=== PATIENT | male | born 1935 | race Caucasian/White ===

== ENCOUNTER 2016-05-15 13:30 | Inpatient (IN) | payer OTHER ==
[~2016-05-15] VITALS: Ht 165.1 cm; Wt 85.8 kg
[~2016-05-15 13:30] MED LIST: IBUP-1542 PO; TRAM50TA2 PO
[2016-05-15] MEDS ORDERED: AZITHROMYCIN 250 MG TAB PO STA (13:42)
[2016-05-15] MEDS ORDERED: SOD CHLORIDE 0.9% 500 ML IV STA (13:42)
[2016-05-15] MEDS ORDERED: CEFTRIAXONE 1 GM/50 ML (PMX) 50 ML IVPB STA (13:42)
--- NOTE | 2016-05-15 13:54 | ERA ---
ER Documentation Chief Complaint Date/Time DATE: 05/15/16 TIME: 13:51 Chief Complaint body aches x 2 weaks HPI Patient is an 80-year-old who comes in reporting fever with cough and congestion for the last 2 weeks. He states he is coughing up greenish phlegm and has a sore throat with a runny nose. He denies any earache, shortness of breath, abdominal pain, nausea, vomiting, or diarrhea. He states he has not been around anyone who has been sick nor has he traveled out of the country. He did go to see his primary care physician and he states that his physician was unable to find anything wrong with him. He says he feels worse now however which is why he is here in the emergency department. He says he is sore all over his body. He is not have any rashes. Nothing seems to make this better or worse. The remainder of the systems are negative. ROS All systems reviewed and are negative except as per history of present illness. Medications Home Meds Discontinued Scripts Ibuprofen* (Motrin*) 600 Mg Tab, 600 MG PO Q6, #20 TAB Prov:SAKSHI SCHWARTZ MD 09/03/14 Tramadol HCl (Tramadol HCl) 50 Mg Tab, 50 MG PO Q4 Y for PAIN, #20 TAB Prov:SAKSHI SCHWARTZ MD 09/03/14 Allergies Allergies: Coded Allergies: No Known Allergies (Verified Allergy, Mild, 09/03/14) PMhx/Soc History of Surgery: Yes (RECENT LA S/P CABG) Anesthesia Reaction: No Hx Neurological Disorder: No Hx Respiratory Disorders: No Hx Cardiac Disorders: Yes Hx Psychiatric Problems: No Hx Miscellaneous Medical Probl: Yes (DM,HTN,ASHD,s/pCABG 12/10) Hx Alcohol Use: Yes (21 YEARS AGO STOPPED) Hx Substance Use: No Hx Tobacco Use: Yes (21 YRS AGO) FmHx Family History: coronary disease, No diabetes Physical Exam Vitals Vital Signs Date Time Temp Pulse Resp B/P Pulse Ox O2 Delivery O2 Flow Rate FiO2 05/15/16 15:07 107 28 129/84 98 Room Air 05/15/16 13:49 Nasal Cannula 2 05/15/16 13:37 101.1 114 18 140/82 99 Physical Exam Const: [] Well-developed well-nourished male sitting on the bed no acute distress Head: Atraumatic normocephalic Eyes: Normal Conjunctiva ENT: Normal External Ears, Nose and Mouth. Posterior pharynx is slightly erythematous Neck: Full range of motion..~ No meningismus. Resp: Decreased in the bases, no tachypnea, retractions, or nasal flaring noted Cardio: Regular rate and rhythm, no murmurs Abd: Soft, non tender, non distended. Normal bowel sounds Skin: No petechiae or rashes Back: No midline or flank tenderness Ext: No cyanosis, or edema Neur: Awake and alert, oriented 3, GCS of 15 Psych: Normal Mood and Affect Result Diagram: 05/15/16 1350 Results 24 hrs Laboratory Tests Test 05/15/16 13:50 Eosinophils # 10^3/ul Eosinophils % % Hematocrit 38.3% Hemoglobin 13.3g/dl Mean Corpuscular Hemoglobin 29.4pg Mean Corpuscular Hemoglobin Concent 34.7g/dl Mean Corpuscular Volume 84.5fl Mean Platelet Volume 10.6fl Neutrophils # 10^3/ul Neutrophils % % Platelet Count 50712^3/UL Red Blood Count 4.5310^6/ul Red Cell Distribution Width 14.2% White Blood Count 14.110^3/ul Current Medications Medications (Trade) Dose Ordered Sig/Simone Route PRN Reason Start Time Stop Time Status Last Admin Dose Admin Sodium Chloride (NS) 500 ml @ 500 mls/hr Q1H STAT IV 05/15/16 13:42 05/15/16 14:41 DC Azithromycin 500 mg 500 mg ONCE STAT PO 05/15/16 13:42 05/15/16 13:47 DC Ceftriaxone Sodium (Rocephin) 50 ml @ 100 mls/hr ONCE STAT IVPB 05/15/16 13:42 05/15/16 14:11 DC Acetaminophen (Tylenol Tab) 650 mg ONCE ONCE PO 05/15/16 14:00 05/15/16 14:01 DC Procedures/MDM Differential includes but is not limited to pneumonia, bronchitis, influenza, viral syndrome, pharyngitis Chest x-ray was interpreted as cardiomegaly with bilateral pleural effusions however clinically he is more consistent with pneumonia 1500: I spoke with the hospitalist about admitting the patient to the hospital for IV antibiotic therapy and further evaluation and treatment. The patient clinically is unchanged. Departure Diagnosis: Primary Impression: Fever Qualified Code: R50.81 - Fever in other diseases Additional Impressions: Pneumonia Qualified Code: J18.9 - Pneumonia of both lower lobes due to infectious organism Myalgia Condition: RICHIE Peralta May 15, 2016 13:54
[2016-05-15] MEDS ORDERED: ACETAMINOPHEN 325 MG TAB PO ONE (14:00)
[2016-05-15 14:16] LABS: ADD SCAN DIFF NO
[2016-05-15 14:17] LABS: HEMATOCRIT 38.3 % (42.0-52.0); HEMOGLOBIN 13.3 g/dl (14.0-18.0); MEAN CORPUSCULAR HEMOGLOBIN 29.4 pg (29.0-33.0); MEAN CORPUSCULAR HGB CONC 34.7 g/dl (32.0-37.0); MEAN CORPUSCULAR VOLUME 84.5 fl (82.0-101.0); MEAN PLATELET VOLUME 10.6 fl (7.4-10.4); PLATELET COUNT 329 10^3/UL (140-415); RED BLOOD COUNT 4.53 10^6/ul (4.70-6.10); RED CELL DISTRIBUTION WIDTH 14.2 % (11.5-14.5); WHITE BLOOD COUNT 14.1 10^3/ul (4.8-10.8)
--- NOTE | 2016-05-15 14:31 | RADRPT ---
PROCEDURE: Chest x-ray CLINICAL INDICATION: Shortness of breath TECHNIQUE: Chest single view COMPARISON: 04/14/2014 FINDINGS: There is moderate cardiomegaly and mild atherosclerotic aortic calcification but there is interval d evelopment of CHF with small bilateral pleural effusions IMPRESSION: Cardiomegaly with interval development of CHF and small bilateral pleural effusions Status post CABG RPTAT: HH .Alli Gonzales MD, MD Date Time Electronically viewed and signed by .Alli Gonzales MD, on 05/15/2016 14:31 .W/
[2016-05-15] MEDS ORDERED: ONDANSETRON 4 MG INJ IV PRN (15:30)
[2016-05-15] MEDS ORDERED: ACETAMINOPHEN 325 MG TAB PO PRN (15:30)
[2016-05-15 15:42] LABS: LYMPHOCYTES # 0.8 10^3/ul (0.8-2.9); MONOCYTE # 1.1 10^3/ul (0.3-0.9); NEUTROPHIL # 12.1 10^3/ul (1.6-7.5); PLATELET ESTIMATE PLT APPEAR ADEQUATE
[2016-05-15 15:55] LABS: POTASSIUM 3.8 mmol/L (3.5-5.1)
[2016-05-15 15:57] LABS: ALBUMIN/GLOBULIN RATIO 0.93; BILIRUBIN,INDIRECT 0.3 mg/dl (0-1.1); BILIRUBIN,TOTAL 0.3 mg/dl (0.2-1.3); CALCIUM 9.8 mg/dl (8.4-10.2); CREATININE 0.67 mg/dl (0.61-1.24); TOTAL PROTEIN 6.2 g/dl (6.1-8.1)
[2016-05-15] MEDS ORDERED: NACL 0.9% 3 ML SYG IV SCH (17:00)
[2016-05-15] MEDS ORDERED: BISACODYL (EC) 5 MG TAB PO PRN (17:00)
[2016-05-15] MEDS ORDERED: ONDANSETRON 4 MG TAB PO PRN (17:00)
[2016-05-15] MEDS ORDERED: DOCUSATE SODIUM 100 MG CAP PO PRN (17:00)
[2016-05-15] MEDS ORDERED: HYDROCODONE/APAP (5/325) TAB PO PRN (17:00)
[2016-05-15 20:00] VITALS: BP 134/69; RESP 17; Ht 165.1 cm; Wt 85.8 kg
[2016-05-15 21:06] VITALS: PULSE 111
[2016-05-15] MEDS: SOD CHLORIDE 0.9% 1,000 ML IV SCH (21:23)
[2016-05-15] MEDS: ASPIRIN 81 MG TAB PO SCH (21:32)
--- NOTE | 2016-05-15 23:06 | RADRPT ---
PROCEDURE: CT Head without. CLINICAL INDICATION: Altered mental status. TECHNIQUE: The study was performed utilizing a multi-slice, multidetector CT scanner. Direct spira l 1 mm axial sections were obtained through the head without the use of intravenous contrast materia l. 1 or more of the following dose reduction techniques were utilized: Automated exposure control, adjustment of the mA and/or kV according to patient's size, iterative reconstruction technique. Co wayne and sagittal reformations were obtained. The images were reviewed on a PACS workstation. RADIATION DOSE: CTDIvol: 45.0 mGyDLP: 720.2 mGy-cm COMPARISON: No prior studies are available for comparison. FINDINGS: There is no intracranial hemorrhage, extra-axial fluid collection, mass lesion, midline shift or hyd rocephalus. There is subtle loss of rousseau-white matter differentiation involving the posterior left parietal / occipital lobe (axial series image 15), concerning for acute infarct. There is moderate prominence of the cerebral sulci, lateral and third ventricles. There is moderate patchy periventri cular and subcortical white matter hypodensity. There is mild arteriosclerotic calcification of the parasellar internal carotid arteries. The rousseau-white matter differentiation is preserved. The bas al cisterns are patent. The midline structures are intact. There is bilateral aphakia. The orbits , calvarium and extracranial soft tissues are normal in appearance. The visualized paranasal sinuses , mastoid air cells and middle ear cavities are normally aerated. IMPRESSION: 1. Subtle loss of rousseau-white matter differentiation involving the left parietal / occipital lobe, c oncerning for acute infarct. MRI is recommended for further evaluation. 2. No intracranial hemorrhage, extra-axial fluid collection, mass lesion or hydrocephalous. 3. Moderate peripheral and central cerebral volume loss. 4. 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 The above findings were discussed with Patient's Nurse Em by telephone on 05/15/2016 11:04:29 PM . RPTAT: HGAS .Jesus Guzman MD, Date Time Electronically viewed and signed by .Jesus Guzman MD, on 05/15/2016 23:06 .S/
[2016-05-15] MEDS ORDERED: ATORVASTATIN 80 MG TAB GTB SCH (23:45)
[2016-05-15] MEDS ORDERED: ASPIRIN 81 MG TAB PO ONE (23:50)
[2016-05-15] MEDS ORDERED: ATORVASTATIN 80 MG TAB PO SCH ×2 (23:51)
[2016-05-16] VITALS (12 sets, daily range): BP systolic 124–161; BP diastolic 52–85; PULSE 94–118; RESP 14–18
[2016-05-16] MEDS ORDERED: hydrALAzine 20 MG INJ IV PRN (03:00)
[2016-05-16] MEDS: PANTOPRAZOLE (EC) 40 MG TAB PO SCH (06:00)
[2016-05-16 06:08] LABS: TROPONIN-I 0.068 ng/ml (0.00-0.12)
[2016-05-16 06:33] LABS: CK-MB 1.95 ng/ml (0.0-2.4)
--- NOTE | 2016-05-16 07:16 | HP ---
DATE OF ADMISSION: 05/15/2016 CONSULTANTS: [employer]. CHIEF COMPLAINT: Fever. HISTORY OF PRESENT ILLNESS: This is an 80-year-old gentleman with past medical history of coronary artery disease, hypertension, diabetes mellitus, coronary artery bypass surgery, myocardial infarct ion, transient hyponatremia, coronary artery bypass graft x3 vessels on 12/19/2009 who was sent to [facility] secondary to having body aches x2 weeks accompanied with cough and conge stion. The patient stated he has been coughing greenish phlegm, has been having runny nose and sore throat. Denies any shortness of breath, chest pain, palpitations, edema, orthopnea. Denies any si ck contact or recent travel history. The physical examination and history is very limited. The pat joni is a very poor historian and is not compliant with his medication, accordingly is not taking an y of his medications that he was prescribed in the past. Upon arrival to emergency room, patient wa s found to have fever of 101.1, pulse 114, respiration 18, blood pressure 140/82, and oxygen 99% in room air. GENERAL APPEARANCE: Patient is lying in the bed comfortably without any distress. He is awake, neville rt, oriented. He is able to answer my questions properly. PAST MEDICAL AND SURGICAL HISTORY: As above per HPI. MEDICATIONS: None. ALLERGIES: NO KNOWN DRUG ALLERGIES. MEDICATIONS: According to the notes on 01/07/2010, the patient's medication used to be: 1. Zocor 10 mg. 2. Zantac 150 mg. 3. Januvia 50 mg. 4. Aspirin 325 mg. 5. Indocin 50 mg. 6. Metoprolol 50 mg b.i.d. SOCIAL HISTORY: History of smoking, no alcohol, no illicit drugs. FAMILY HISTORY: Noncontributory secondary to advanced age. REVIEW OF SYSTEMS: Limited as stated above. The patient denies having any chest pain, shortness of breath. Positive for cough, congestion and runny nose. Positive for body ache. No change in visu al acuity, diplopia, photophobia. No abdominal pain, no diarrhea or any other discomfort except wha t was stated above. PHYSICAL EXAMINATION: VITAL SIGNS: Temperature 101.1, pulse 99, respiration 20, blood pressure 124/77, oxygen saturation 95% on room air. GENERAL APPEARANCE: The patient is lying in bed comfortably without any distress. He is not using any accessory muscles for breathing. Body habitus morbidly obese with BMI of ____. EYES AND ENT: Conjunctivae and lids are normal. Pupils are normal. Extraocular normal. Hearing g rossly normal. Pupils are normal. Oral mucosa is moist. NECK: Supple. Trachea is midline. No lymphadenopathy. RESPIRATORY: Effort is normal. Clear to auscultation bilaterally. CARDIOVASCULAR: Normal S1, S2. Regular rhythm and rate. No murmur, no bruits, no edema. Peripher al pulses, radial pulses palpable. Cap refill is normal. CHEST: Normal expansion of thorax during inspiration. GASTROINTESTINAL: Abdomen is soft, nontender, not distended. Bowel sounds present. No guarding, n o rebound. GENITOURINARY: Deferred. MUSCULOSKELETAL: Upper and lower extremities within normal limits. Full range of motion. NEUROLOGIC: He is awake, alert. LABORATORY WORK AND IMAGING: WBC 14.1, hemoglobin 13.3, hematocrit 38.3, platelets 329. Sodium 138 , potassium 3.8, chloride 102, bicarbonate 23, BUN 15, creatinine 0.67, glucose 184. BNP 3890, AST 67. ASSESSMENT AND PLAN: 1. Pneumonia. 2. History of coronary artery disease. 3. History of hypertension. 4. History of dyslipidemia. 5. Generalized weakness. 6. Congestive heart failure. 7. BMI of ____. ASSESSMENT AND PLAN: The patient will be admitted to telemetry floor. He has been started on broad spectrum IV antibiotics and Tylenol. Cardiology has been consulted. We will obtain a 2D echocardi ogram. Follow up lipid panel, thyroid panel, lactic acid and hemoglobin A1c. The patient will be p laced on cardiac diet. For deep venous thrombosis prophylaxis, the patient has been started on aspi rin. We will continue to monitor patient closely. Further recommendations, management and treatmen t as per clinical course. Total amount of time ____ Dictated By: LUIS GOODWIN MD PN/NTS Conf#: [id number] DID#: [id number]
[2016-05-16 07:56] LABS: ADD SCAN DIFF NO
[2016-05-16 08:00] LABS: HEMOGLOBIN 12.8 g/dl (14.0-18.0); MEAN CORPUSCULAR HEMOGLOBIN 28.4 pg (29.0-33.0); MEAN CORPUSCULAR HGB CONC 32.8 g/dl (32.0-37.0); MEAN CORPUSCULAR VOLUME 86.7 fl (82.0-101.0); MEAN PLATELET VOLUME 10.1 fl (7.4-10.4); PLATELET COUNT 344 10^3/UL (140-415); RED CELL DISTRIBUTION WIDTH 14.3 % (11.5-14.5); WHITE BLOOD COUNT 15.4 10^3/ul (4.8-10.8)
[2016-05-16 08:09] LABS: POTASSIUM 3.6 mmol/L (3.5-5.1)
[2016-05-16 08:11] LABS: CREATININE 0.52 mg/dl (0.61-1.24)
[2016-05-16 08:12] LABS: CALCIUM 9.4 mg/dl (8.4-10.2); MAGNESIUM 2.3 mg/dl (1.7-2.5)
[2016-05-16 08:14] LABS: CHOL/HDL RATIO 6.9 RATIO
--- NOTE | 2016-05-16 08:26 | RADRPT ---
PROCEDURE: Carotid ultrasound CLINICAL INDICATION: Transient ischemic attack, carotid bruits TECHNIQUE: Yanez scale, color doppler, spectral doppler ultrasound of the bilateral carotid and socorro tebral arteries. This study indirectly references the measurement of the distal ICA diameter as the denominator for s tenosis measurement. Validated velocity measurements with angiographic measurements, velocity criter ia are extrapolated from diameter data as defined by: *Cartoid artery stenosis: yanez-scale and Doppl er US diagnosis. Society of Radiologists in Ultrasound Consensus Conference. Radiology 2003; 229: 34 0-346. SRU Consensus Conference Criteria for the Diagnosis of Carotid Artery Stenosis* Degree of Stenosis, % ICA PSV, cm/sec Plaque Estimate, % ICA/CCA PSV Ratio Normal <125 None <2.0 <50 <125 <50 <2.0 50 69 125-230 >50 2.0-4.0 >70 but less than near occlusion >230 >50 <4.0 Near occlusion High, low, or undetectable Visible Variable Total occlusion Undetectable Visible, no detectable lumen Not applicable COMPARISON: No prior studies are available for comparison. FINDINGS: Location Right CCA84 cm/sec Prox ICA 27 cm/sec Mid ICA35 cm/sec Dist ICA37 cm/sec ECA62 cm/sec ICA/CCA0.4 Left CCA60 cm/sec Prox ICA 50 cm/sec Mid ICA58 cm/sec Dist ICA47 cm/sec HGF803 cm/sec ICA/CCA1.0 Plaque burden: A minimal amount of plaque is present within the visualized portions of both internal carotid arteries however there is no evidence of flow acceleration to suggest a hemodynamically sig nificant stenosis. Antegrade flow is seen within the vertebral arteries bilaterally. IMPRESSION: A minimal amount of plaque is present within the visualized portions of both internal carotid arteri es however there is no evidence of flow acceleration to suggest a hemodynamically significant stenos is. RPTAT: AADD .Kory Faria MD, Date Time Electronically viewed and signed by .Kory Faria MD, on 05/16/2016 08:26 .B/
[2016-05-16 08:42] LABS: THYROID STIMULATING HORMONE 0.653 MIU/L (0.465-4.680)
[2016-05-16] MEDS: ENOXAPARIN 40 MG/0.4 ML SYG SC SCH (08:56)
[2016-05-16] MEDS: ASPIRIN 81 MG TAB PO SCH (08:57)
[2016-05-16] MEDS: ACETAMINOPHEN 325 MG TAB PO PRN (08:57)
[2016-05-16] MEDS: AZITHROMYCIN 250 MG TAB PO SCH (08:58)
--- NOTE | 2016-05-16 09:46 | RADRPT ---
PROCEDURE: XR Chest. CLINICAL INDICATION: Shortness of breath. TECHNIQUE: Single frontal view. COMPARISON: 05/15/2016. FINDINGS: There is right upper lobe air space disease consistent with pneumonia, worse than seen previously. Bilateral air space and interstitial disease consistent with pulmonary edema is otherwise unchanged. The heart is enlarged. There is calcification in the aorta consistent with atherosclerosis. There are sternal wires and mediastinal clips. There are small bilateral pleural effusions. There is no pneumothorax. IMPRESSION: 1. Worse right upper lobe pneumonia. 2. No other change from 05/15/2016. RPTAT: QQ .Abisai Monroy MD, MD Date Time Electronically viewed and signed by .Abisai Monroy MD, MD on 05/16/2016 09:46 .R/
[2016-05-16] MEDS: SOD CHLORIDE 0.9% 1,000 ML IV SCH (12:06)
[2016-05-16 14:00] LABS: EOSINOPHILS # 0.5 10^3/ul (0.0-0.5); LYMPHOCYTES # 2.6 10^3/ul (0.8-2.9); MONOCYTE # 0.5 10^3/ul (0.3-0.9); NEUTROPHIL # 9.9 10^3/ul (1.6-7.5)
--- NOTE | 2016-05-16 14:54 | CONS ---
Date/Time of Note Date/Time of Note DATE: 05/16/16 TIME: 14:50 Assessment/Plan Assessment/Plan Additional Assessment/Plan 1. Pneumonia. 2. History of coronary artery disease/cabg. 3. History of hypertension. 4. History of dyslipidemia. 5. Generalized weakness. 6. r/o CHF ASSESSMENT AND PLAN: -antibiotics -IVF -off statin due to elevated LFTS - rx ACEI/boblockers due to cad - will cehck echo -no overt chf and will cehck echo Consultation Date/Type/Reason Admit Date/Time May 15, 2016 at 15:12 Hx of Present Illness This is an 80-year-old gentleman with past medical history of coronary artery disease, hypertension, diabetes mellitus, myocardial infarction, transient hyponatremia, coronary artery bypass graft x3 vessels on 12/19/2009 who was sent to [facility] secondary to having body aches x2 weeks accompanied with cough and congestion. The patient stated he has been coughing greenish phlegm, has been having runny nose and sore throat. Denies any shortness of breath, chest pain, palpitations, edema, orthopnea. Denies any sick contact or recent travel history. The physical examination and history is very limited. The patient is a very poor historian and is not compliant with his medication, accordingly is not taking any of his medications that he was prescribed in the past. Upon arrival to emergency room, patient was found to have fever of 101.1, pulse 114, respiration 18, blood pressure 140/82, and oxygen 99% in room air. The patient ahd sone SOB but no overt chf and no orthopena Social History Smoking Status: Former smoker Exam/Review of Systems Vital Signs Vitals Vital Signs Date Time Temp Pulse Resp B/P Pulse Ox O2 Delivery O2 Flow Rate FiO2 05/16/16 13:31 94 05/16/16 12:34 97.8 16 135/75 97 05/16/16 07:57 Nasal Cannula 2.0 Intake and Output 05/15/16 05/15/16 05/16/16 14:59 22:59 06:59 Intake Total 640 ml Output Total 1300 ml Balance -660 ml Results Result Diagram: 05/16/16 0520 05/16/16 0520 Results 24 hrs Laboratory Tests Test 05/15/16 15:15 05/15/16 18:30 05/15/16 18:37 05/15/16 21:30 Alanine Aminotransferase (ALT/SGPT) 50 Albumin 3.0 L Albumin/Globulin Ratio 0.93 Alkaline Phosphatase 86 Anion Gap 17 H Aspartate Amino Transf (AST/SGOT) 67 H B-Type Natriuretic Peptide 3890 H Blood Urea Nitrogen 15 Calcium Level 9.8 Carbon Dioxide Level 23 Chloride Level 102 Creatinine 0.67 Direct Bilirubin 0.00 Globulin 3.20 Glucose Level 184 Indirect Bilirubin 0.3 Lactic Acid Level 1.5 1.3 1.4 Potassium Level 3.8 Sodium Level 138 Total Bilirubin 0.3 Total Protein 6.2 Bedside Glucose 137 Test 05/16/16 00:35 05/16/16 01:05 05/16/16 05:20 Lactic Acid Level 1.3 Bedside Glucose 149 Anion Gap 17 H Band Neutrophils % 13.0 H Blood Urea Nitrogen 14 Calcium Level 9.4 Carbon Dioxide Level 21 Chloride Level 106 Cholesterol Level 83 L Cholesterol/HDL Ratio 6.9 Creatine Kinase 105 Creatine Kinase Index 1.9 Creatinine 0.52 L Creatinine Kinase MB (Mass) 1.95 Eosinophils # 0.5 Eosinophils % 3.0 Glucose Level 137 # HDL Cholesterol 12 L Hematocrit 39.0 L Hemoglobin 12.8 L Hemoglobin A1c 7.6 H LDL Cholesterol, Calculated 51 Lymphocytes # 2.6 Lymphocytes % 17.0 Magnesium Level 2.3 Mean Corpuscular Hemoglobin 28.4 L Mean Corpuscular Hemoglobin Concent 32.8 Mean Corpuscular Volume 86.7 Mean Platelet Volume 10.1 Monocytes # 0.5 Monocytes % 3.0 Neutrophils # 9.9 H Neutrophils % 64.0 Platelet Count 344 Potassium Level 3.6 Red Blood Count 4.50 L Red Cell Distribution Width 14.3 Sodium Level 140 Thyroid Stimulating Hormone (TSH) 0.653 Triglycerides Level 98 Troponin I 0.068 White Blood Count 15.4 H Medications Medications Current Medications Sodium Chloride (NS) 1,000 ml @ 50 mls/hr Q20H IV Last administered on 21:23; Admin Dose 50 MLS/HR; Start 05/15/16 at 16:51 Ondansetron HCl (Zofran Tab) 4 mg Q6H PRN PO NAUSEA AND/OR VOMITING; Start at 17:00 Acetaminophen (Tylenol Tab) 650 mg Q6H PRN PO PAIN LEVEL 1-3 OR FEVER Last administered on 05/16/16 08:57; Admin Dose 650 MG; Start 05/15/16 at 17:00 Acetaminophen/ Hydrocodone Bitart ([place] (5/325)) 1 tab Q6H PRN PO MODERATE PAIN LEVEL 4-6; Start 05/15/16 at 17:00 Docusate Sodium (Colace) 100 mg Q12H PRN PO CONSTIPATION; Start 05/15/16 at 17: 00 Bisacodyl (Dulcolax) 5 mg DAILY PRN PO CONSTIPATION; Start 05/15/16 at 17:00 Pantoprazole (Protonix Tab) 40 mg DAILY@06 PO ; Start 05/16/16 at 06:00 Enoxaparin Sodium 40 mg 40 mg DAILY SC Last administered on 05/16/16 08:56; Admin Dose 40 MG; Start 05/16/16 at 09:00 Ceftriaxone Sodium (Rocephin) 50 ml @ 100 mls/hr Q24H IVPB ; Start 05/16/16 at 14:00 Azithromycin (Zithromax) 250 mg DAILY PO Last administered on 05/16/16 08:58; Admin Dose 250 MG; Start 05/16/16 at 09:00 Aspirin (Aspirin) 81 mg DAILY PO Last administered on 05/16/16 08:57; Admin Dose 81 MG; Start 05/15/16 at 18:30 Hydralazine HCl (Apresoline) 10 mg Q6H PRN IV ELEVATED SYSTOLIC BP; Start 05/16 at 03:00 HENRY PATEL MD May 16, 2016 14:53
[2016-05-16] MEDS: CEFTRIAXONE 1 GM/50 ML (PMX) 50 ML IVPB SCH (15:43)
--- NOTE | 2016-05-16 16:09 | PN ---
Date/Time of Note Date/Time of Note DATE: 05/16/16 TIME: 16:05 Assessment/Plan VTE Prophylaxis VTE Prophylaxis Intervention: LMWH Lines/Catheters IV C[facility]ter Type (from [facility]): Peripheral IV Assessment/Plan Chief Complaint/Hosp Course ASSESSMENT AND PLAN: 1. CVA , neurology has been consulted, continue aspirin, statin Follow-up neurology recommendation 1. Pneumonia. Continue antibiotics 2. History of coronary artery disease. With history of noncompliance with medical management, continue aspirin and statin 3. History of hypertension. Better controlled on medical management 4. History of dyslipidemia. Continue statin 5. Generalized weakness. 6. Congestive heart failure. We will continue to monitor patient closely. Further recommendations, management and treatment as per clinical course. Problems: Subjective 24 Hr Interval Summary Free Text/Dictation Patient continues to be altered Able to follow commands Exam/Review of Systems Vital Signs Vitals Vital Signs Date Time Temp Pulse Resp B/P Pulse Ox O2 Delivery O2 Flow Rate FiO2 05/16/16 15:43 97.6 80 14 147/74 97 05/16/16 07:57 Nasal Cannula 2.0 Intake and Output 05/15/16 05/15/16 05/16/16 15:00 23:00 07:00 Intake Total 640 ml Output Total 1300 ml Balance -660 ml Exam General: The patient is moderately overweight, Not in acute distress. HEENT: Atraumatic, normocephalic. The pupils are equal and round . Neck: Supple with full range of motion. Chest: Normal expansion of the thorax during inspiration Lungs: Clear to auscultation bilaterally Heart: Normal S1-S2, Regular rhythm and rate. Abdomen: Soft , nontender, nondistended , bowel sounds are present. Extremities: Normal to inspection, no edema no cyanosis Neurologic: Difficulty ambulating difficulty with speech,The patient is awake, alert Results Result Diagram: 05/16/16 0520 05/16/16 0520 Results 24 hrs Laboratory Tests Test 05/15/16 18:30 05/15/16 18:37 05/15/16 21:30 05/16/16 00:35 Lactic Acid Level 1.3 1.4 1.3 Bedside Glucose 137 Test 05/16/16 01:05 05/16/16 05:20 Bedside Glucose 149 Anion Gap 17 H Band Neutrophils % 13.0 H Blood Urea Nitrogen 14 Calcium Level 9.4 Carbon Dioxide Level 21 Chloride Level 106 Cholesterol Level 83 L Cholesterol/HDL Ratio 6.9 Creatine Kinase 105 Creatine Kinase Index 1.9 Creatinine 0.52 L Creatinine Kinase MB (Mass) 1.95 Eosinophils # 0.5 Eosinophils % 3.0 Glucose Level 137 # HDL Cholesterol 12 L Hematocrit 39.0 L Hemoglobin 12.8 L Hemoglobin A1c 7.6 H LDL Cholesterol, Calculated 51 Lymphocytes # 2.6 Lymphocytes % 17.0 Magnesium Level 2.3 Mean Corpuscular Hemoglobin 28.4 L Mean Corpuscular Hemoglobin Concent 32.8 Mean Corpuscular Volume 86.7 Mean Platelet Volume 10.1 Monocytes # 0.5 Monocytes % 3.0 Neutrophils # 9.9 H Neutrophils % 64.0 Platelet Count 344 Potassium Level 3.6 Red Blood Count 4.50 L Red Cell Distribution Width 14.3 Sodium Level 140 Thyroid Stimulating Hormone (TSH) 0.653 Triglycerides Level 98 Troponin I 0.068 White Blood Count 15.4 H Medications Medications Current Medications Sodium Chloride (NS) 1,000 ml @ 50 mls/hr Q20H IV Last administered on 21:23; Admin Dose 50 MLS/HR; Start 05/15/16 at 16:51 Ondansetron HCl (Zofran Tab) 4 mg Q6H PRN PO NAUSEA AND/OR VOMITING; Start at 17:00 Acetaminophen (Tylenol Tab) 650 mg Q6H PRN PO PAIN LEVEL 1-3 OR FEVER Last administered on 05/16/16 08:57; Admin Dose 650 MG; Start 05/15/16 at 17:00 Acetaminophen/ Hydrocodone Bitart ([place] (5/325)) 1 tab Q6H PRN PO MODERATE PAIN LEVEL 4-6; Start 05/15/16 at 17:00 Docusate Sodium (Colace) 100 mg Q12H PRN PO CONSTIPATION; Start 05/15/16 at 17: 00 Bisacodyl (Dulcolax) 5 mg DAILY PRN PO CONSTIPATION; Start 05/15/16 at 17:00 Pantoprazole (Protonix Tab) 40 mg DAILY@06 PO ; Start 05/16/16 at 06:00 Enoxaparin Sodium 40 mg 40 mg DAILY SC Last administered on 05/16/16 08:56; Admin Dose 40 MG; Start 05/16/16 at 09:00 Ceftriaxone Sodium (Rocephin) 50 ml @ 100 mls/hr Q24H IVPB Last administered on 05/16/16 15:43; Admin Dose 100 MLS/HR; Start 05/16/16 at 14:00 Azithromycin (Zithromax) 250 mg DAILY PO Last administered on 05/16/16 08:58; Admin Dose 250 MG; Start 05/16/16 at 09:00 Aspirin (Aspirin) 81 mg DAILY PO Last administered on 05/16/16 08:57; Admin Dose 81 MG; Start 05/15/16 at 18:30 Hydralazine HCl (Apresoline) 10 mg Q6H PRN IV ELEVATED SYSTOLIC BP; Start 05/16 at 03:00 Lisinopril (Zestril) 5 mg DAILY PO ; Start 05/17/16 at 09:00 Carvedilol (Coreg) 3.125 mg BID PO ; Start 05/16/16 at 21:00 LUIS GOODWIN MD May 16, 2016 16:09
--- NOTE | 2016-05-16 17:49 | RADRPT ---
Echocardiogram Report Patient Name: JUMANA CAZARES Gender: Male Date: 1935 Study Date: 16-May-2016 Pulmonary Physical Therapist: Clint Hope [facility] Location: 5541 Ref. Physician: KAE ALVARADO Quality: Good Procedures: Transthoracic echocardiogram with complete 2D, M-Mode, and doppler examination. Indications: Congestive Heart Failure. 2D/M Mode Doppler Measurement Value Normal Ranges Measurement Value Normal Ranges LVIDd 2D 5.6 3.5 - 5.6 cm AV Peak Angelo 1.6 m/sec LVIDs 2D 3.9 2.1 - 4.1 cm AV Peak PG 10.0 mmHg FS 2D 30.1 % AI Peak PG 71.0 mmHg LVPWd 2D 1.1 0.6 - 1.1 cm AI Peak Angelo 4.2 m/sec IVSd 2D 1.2 0.6 - 1.1 cm AI PHT 374.0 msec IVS/LVPW 2D 1.0 LVOT Peak Angelo 0.9 m/sec AoR Diam 2D 3.2 2.0 - 3.7 cm LVOT Peak PG 3.0 mmHg LA/Ao 2D 1 0 - 1 TR Peak Angelo 3.5 m/sec EDV 2D 177.0 cm3 TR Peak PG 48.0 mmHg ESV 2D 60.2 cm3 RVSP 51.0 mmHg LA Dimen 2D 3.8 2.3 - 4.0 cm Findings Left Ventricle: Mild concentric left ventricular hypertrophy. Mild enlargement of left ventricle cavity. Moderate to severe left ventricular systolic dysfunction. Ejection fraction is visually estimated at 30 %. Abnormal Diastolic Function. Right Ventricle: Normal right ventricular size. Normal right ventricular systolic function. Left Atrium: The left atrium is normal in size. Right Atrium: The right atrium is normal in size. Mitral Valve: Mitral valve leaflets appear mildly thickened. Mild mitral annular calcification. Trace mitral regurgitation. Aortic Valve: No hemodynamically significant aortic stenosis by doppler. Aortic cusps appear mildly calcified. Mild aortic valve regurgitation. Tricuspid Valve: Normal appearance of the tricuspid valve. Estimated peak PA systolic pressure 51 mmHg. There is mild to moderate tricuspid regurgitation. Pulmonic Valve: Pulmonic valve not well visualized. There is trace pulmonic regurgitation. Pericardium: Normal pericardium with no significant pericardial effusion. Aorta: Normal aortic root. IVC: Normal size and normal respiratory collapse consistent with normal right atrial pressure. Conclusions 1.Mild concentric left ventricular hypertrophy. Mild enlargement of left ventricle cavity. Moderate to severe left ventricular systolic dysfunction. Ejection fraction is visually estimated at 30 %. Abnormal Diastolic Function. 2.Normal right ventricular size. Normal right ventricular systolic function. 3.The left atrium is normal in size. 4.The right atrium is normal in size. 5.Estimated peak PA systolic pressure 51 mmHg. There is mild to moderate tricuspid regurgitation. 6.No hemodynamically significant aortic stenosis by doppler. Mild aortic valve regurgitation. 7.Trace mitral regurgitation. 8.Normal pericardium with no significant pericardial effusion. Electronically Signed By: Shelton Beal 16-May-2016 17:49:04 -0700 Patient Name: JUMANA CAZARES Study Date: 16-May-2016 [id number]
[2016-05-16] MEDS: ATORVASTATIN 10 MG TAB PO SCH (20:12)
[2016-05-17] VITALS (12 sets, daily range): BP systolic 123–182; BP diastolic 60–82; PULSE 79–110; RESP 16–18
[2016-05-17] MEDS: PANTOPRAZOLE (EC) 40 MG TAB PO SCH (06:16)
[2016-05-17] MEDS: SOD CHLORIDE 0.9% 1,000 ML IV SCH (06:30)
[2016-05-17 08:12] LABS: POTASSIUM 3.5 mmol/L (3.5-5.1)
[2016-05-17 08:15] LABS: CREATININE 0.58 mg/dl (0.61-1.24)
[2016-05-17 08:16] LABS: CALCIUM 9.3 mg/dl (8.4-10.2); MAGNESIUM 2.3 mg/dl (1.7-2.5)
[2016-05-17] MEDS: LISINOPRIL 5 MG TAB PO SCH (08:44)
[2016-05-17] MEDS: ASPIRIN 81 MG TAB PO SCH (08:44)
[2016-05-17] MEDS: ACETAMINOPHEN 325 MG TAB PO PRN (08:44)
[2016-05-17] MEDS: AZITHROMYCIN 250 MG TAB PO SCH (08:45)
[2016-05-17] MEDS: ENOXAPARIN 40 MG/0.4 ML SYG SC SCH (08:51)
[2016-05-17] MEDS ORDERED: POTASSIUM CHLORIDE (SR) 20 MEQ TAB PO STA (12:59)
[2016-05-17] MEDS ORDERED: FUROSEMIDE 20 MG INJ IV ONE (13:00)
--- NOTE | 2016-05-17 13:04 | CONS ---
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 Continue beta-mika, REX inhibitor as blood pressure and renal function permits. Antibiotics as per primary team. Consultation Date/Type/Reason Admit Date/Time May 15, 2016 at 15:12 Initial Consult Date Type of Consultation: cv 24 HR Interval Summary Free Text/Dictation Patient seen and examined, denies shortness of breath or chest pain and feeling better Exam/Review of Systems Vital Signs Vitals Vital Signs Date Time Temp Pulse Resp B/P Pulse Ox O2 Delivery O2 Flow Rate FiO2 05/17/16 12:11 90 05/17/16 11:55 97.8 18 123/60 97 05/16/16 20:00 Nasal Cannula 2.0 Intake and Output 05/16/16 05/16/16 05/17/16 15:00 23:00 07:00 Intake Total 720 ml 80 ml Output Total 600 ml 500 ml Balance 120 ml -420 ml Exam Follows commands, difficulty with speech, no apparent distress Constitutional: alert Head: normocephalic Neck: supple Respiratory: other (Coarse breath sounds bilaterally, no wheezing) Cardiovascular: other (S1-S2 heard), regular rate and rhythm, systolic murmur Gastrointestinal: bowel sounds, non-tender, other (No guarding), soft Extremities: edema (Trace), other (No cyanosis) Results Result Diagram: 05/16/16 0520 05/17/16 0600 Results 24 hrs Laboratory Tests Test 05/17/16 06:00 Anion Gap 16 Blood Urea Nitrogen 17 Calcium Level 9.3 Carbon Dioxide Level 23 Chloride Level 109 Creatinine 0.58 L Glucose Level 133 Magnesium Level 2.3 Potassium Level 3.5 Sodium Level 144 Medications Medications Current Medications Sodium Chloride (NS) 1,000 ml @ 50 mls/hr Q20H IV Last administered on t 06:30; Admin Dose 50 MLS/HR; Start 05/15/16 at 16:51 Ondansetron HCl (Zofran Tab) 4 mg Q6H PRN PO NAUSEA AND/OR VOMITING; Start at 17:00 Acetaminophen (Tylenol Tab) 650 mg Q6H PRN PO PAIN LEVEL 1-3 OR FEVER Last administered on 05/17/16 08:44; Admin Dose 650 MG; Start 05/15/16 at 17:00 Acetaminophen/ Hydrocodone Bitart ([place] (5/325)) 1 tab Q6H PRN PO MODERATE PAIN LEVEL 4-6; Start 05/15/16 at 17:00 Docusate Sodium (Colace) 100 mg Q12H PRN PO CONSTIPATION; Start 05/15/16 at 17: 00 Bisacodyl (Dulcolax) 5 mg DAILY PRN PO CONSTIPATION; Start 05/15/16 at 17:00 Pantoprazole (Protonix Tab) 40 mg DAILY@06 PO Last administered on 05/17/16 06 :16; Admin Dose 40 MG; Start 05/16/16 at 06:00 Enoxaparin Sodium 40 mg 40 mg DAILY SC Last administered on 05/17/16 08:51; Admin Dose 40 MG; Start 05/16/16 at 09:00 Ceftriaxone Sodium (Rocephin) 50 ml @ 100 mls/hr Q24H IVPB Last administered on 05/16/16 15:43; Admin Dose 100 MLS/HR; Start 05/16/16 at 14:00 Azithromycin (Zithromax) 250 mg DAILY PO Last administered on 05/17/16 08:45; Admin Dose 250 MG; Start 05/16/16 at 09:00 Aspirin (Aspirin) 81 mg DAILY PO Last administered on 05/17/16 08:44; Admin Dose 81 MG; Start 05/15/16 at 18:30 Hydralazine HCl (Apresoline) 10 mg Q6H PRN IV ELEVATED SYSTOLIC BP; Start 05/16 at 03:00 Lisinopril (Zestril) 5 mg DAILY PO Last administered on 05/17/16 08:44; Admin Dose 5 MG; Start 05/17/16 at 09:00 Carvedilol (Coreg) 3.125 mg BID PO Last administered on 05/17/16 08:44; Admin Dose 3.125 MG; Start 05/16/16 at 21:00 Atorvastatin Calcium (Lipitor) 10 mg HS PO Last administered on 05/16/16 20:12 ; Admin Dose 10 MG; Start 05/16/16 at 21:00 Shelton Beal DO May 17, 2016 13:04
--- NOTE | 2016-05-17 13:16 | PDOCDIS ---
Discharge Instructions CONDITION Patient Condition: Stable HOME CARE INSTRUCTIONS: Special Diet: Soft ACTIVITY: Activity Restrictions: Special Program Special Exercises FOLLOW UP/APPOINTMENTS Appointments Follow up with Neurology in 6-8 weeks LUIS GOODWIN MD May 17, 2016 13:15
[2016-05-17] MEDS ORDERED: ATOR10TA65 PO (13:19)
[2016-05-17] MEDS ORDERED: POTA10TA15 PO (13:19)
[2016-05-17] MEDS ORDERED: LISI-313 PO (13:19)
[2016-05-17] MEDS ORDERED: ASPI81TA3 PO (13:19)
[2016-05-17] MEDS ORDERED: CARV3.1260 PO (13:19)
[2016-05-17] MEDS ORDERED: ONDA4TAB95 PO (13:19)
[2016-05-17] MEDS ORDERED: LAS20 PO (13:19)
[2016-05-17] MEDS ORDERED: PANT40TA4 PO (13:19)
[2016-05-17] MEDS: CEFTRIAXONE 1 GM/50 ML (PMX) 50 ML IVPB SCH (14:24)
--- NOTE | 2016-05-17 14:41 | DS ---
DATE OF ADMISSION: 05/15/2016 DATE OF DISCHARGE: 05/17/2016 CONSULTANTS: 1. Cardiology. 2. Neurology. PROCEDURE: 2D echocardiogram which demonstrated an ejection fraction of 30%, mild concentric left ve ntricular hypertrophy, mild enlargement of the left ventricular cavity size, moderate to severe left ventricular systolic dysfunction, normal right ventricle size, normal right ventricular systolic fu nction. The left atrium is normal, right atrium normal. The estimated peak PA systolic pressure is 51 mmHg. DISCHARGE DIAGNOSES: 1. Acute cerebrovascular accident. 2. Left ventricular hypertrophy. 3. Acute on chronic congestive heart failure, ejection fraction of 30%. 4. Pulmonary hypertension. 5. Essential hypertension. 6. History of noncompliance with medication. 7. Dyslipidemia. 8. History of coronary artery disease, with a history of noncompliance with medical management. 9. Pneumonia, status post IV antibiotics. IMAGING: Carotid Doppler showed a minimal amount of plaque present within the visual portion of bot h internal carotid arteries; however, there is no evidence of hemodynamically significant sten osis. HOSPITAL COURSE: This is an 80-year-old gentleman with a past medical history of coronary artery di sease, hypertension, diabetes mellitus, coronary artery bypass surgery, myocardial infarction and a history of CVA, who was sent to [facility] having body aches x2 weeks, complaining of a cough and congestion. Patient at the time of admission was found to be mildly altered and had a right lower extremity weakness. Chest x-ray was obtained, which was positive for cardiomegaly, _ ____ CHF, and bilateral pleural effusion. The patient was started on broad spectrum IV antibiotics. CT of the brain was obtained which showed a subtotal loss of rousseau white matter differentiated well into the left parietal occipital lobe, concerning for acute infarct. No intracranial hemorrhage, e xtraaxial collection, mass or hydrocephalus. Moderate peripheral and central cerebral volume loss, moderate patchy periventricular subcortical white matter hyperdensity. The [facility] telemetry floor, was seen and evaluated by cardiology. A 2D echocardiogram was obtained which sh owed an ejection fraction of 30%. The patient was started on Coreg, lisinopril and a diuretic for h is history of coronary artery disease and CABG. The patient was on aspirin and Plavix and was place d on a beta mika. The patient has been seen and evaluated by speech therapy and the patient was found to be awake. The patient was placed on pureed nectar thick, pills crushed and mixed with puree , with aspiration precautions. The patient has been able to tolerate his oral intake without any sig n of aspiration. His vitals have been stable, with a temperature of 97.8, pulse 90, respirations 18 , blood pressure 123/60, oxygen 97% on room air. LABORATORY: WBC 15. At this time he is medically stable to be transferred to a correction facility for physical the rapy, occupation therapy and speech therapy. Dictated By: LUIS GOODWIN MD PN/NTS Conf#: [id number] DID#: [id number]
--- NOTE | 2016-05-17 16:25 | CONS ---
Date/Time of Note Date/Time of Note DATE: 05/17/16 TIME: 16:15 Assessment/Plan Assessment/Plan Chief Complaint/Hosp Course Right sided weakness Problems: Additional Assessment/Plan 80-year-old was admitted having body aches x2 weeks accompanied with cough and congestion. The patient stated he has been coughing greenish phlegm, has been having runny nose and sore throat. Denies any shortness of breath, chest pain, palpitations, edema, orthopnea.Ct brain showed subtle loss of rousseau white matter differentiation in left parietal occipital region. Examination showed weakness in right LE weakness and Aphasia. Rule out cute stroke. Plan: 1 MRI of brain 2 Carotid ultrasound 3 Echocardiogram 4 Continue Aspirin and Atorvastatin 5 OT/PT/Speech evaluation 6 will follow Consultation Date/Type/Reason Admit Date/Time May 15, 2016 at 15:12 Date of Consultation: May 17, 2016 Type of Consultation: Neurology Reason for Consultation Right sided weakness, Aphasia Hx of Present Illness This is an 80-year-old gentleman with past medical history of coronary artery disease, hypertension, diabetes mellitus, coronary artery bypass surgery, myocardial infarction, transient hyponatremia, coronary artery bypass graft x3 vessels on 12/19/2009 who was sent to [facility] secondary to having body aches x2 weeks accompanied with cough and congestion. The patient stated he has been coughing greenish phlegm, has been having runny nose and sore throat. Denies any shortness of breath, chest pain, palpitations, edema, orthopnea. Denies any sick contact or recent travel history. CT brain showed subtle loss of rousseau white matter differentiation in left parietal occipital region. Constitutional: no complaints Eyes: no complaints ENT: no complaints Respiratory: no complaints Cardiovascular: no complaints Gastrointestinal: no complaints Genitourinary: no complaints Skin: no complaints Neurologic: focal-weakness Endocrine: no complaints Lymphatic: no complaints Immunologic: no complaints Social History Smoking Status: Former smoker Exam/Review of Systems Vital Signs Vitals Vital Signs Date Time Temp Pulse Resp B/P Pulse Ox O2 Delivery O2 Flow Rate FiO2 05/17/16 12:11 90 05/17/16 11:55 97.8 18 123/60 97 05/16/16 20:00 Nasal Cannula 2.0 Intake and Output 05/16/16 05/16/16 05/17/16 15:00 23:00 07:00 Intake Total 720 ml 80 ml Output Total 600 ml 500 ml Balance 120 ml -420 ml Exam Constitutional: alert Psych: nl mood/affect Head: atraumatic, normocephalic Eyes: EOMI, nl conjunctiva, nl lids, nl sclera ENMT: mucosa pink and moist, nl external ears & nose, nl lips & teeth, nl nasal mucosa & septum Neck: non-tender, supple Respiratory: clear to auscultation, normal air movement Cardiovascular: nl pulses, regular rate and rhythm Gastrointestinal: nl liver, spleen, non-tender, soft Extremities: normal pulses Neurological: other (Alert and awake, follows simple commands, limited cranial nerve examination, 3/5 right loer extremity weakness) Skin: nl turgor, rash or lesions Results Result Diagram: 05/16/16 0520 05/17/16 0600 Results 24 hrs Laboratory Tests Test 05/17/16 06:00 Anion Gap 16 Blood Urea Nitrogen 17 Calcium Level 9.3 Carbon Dioxide Level 23 Chloride Level 109 Creatinine 0.58 L Glucose Level 133 Magnesium Level 2.3 Potassium Level 3.5 Sodium Level 144 Medications Medications Current Medications Sodium Chloride (NS) 1,000 ml @ 50 mls/hr Q20H IV Last administered on 06:30; Admin Dose 50 MLS/HR; Start 05/15/16 at 16:51 Ondansetron HCl (Zofran Tab) 4 mg Q6H PRN PO NAUSEA AND/OR VOMITING; Start at 17:00 Acetaminophen (Tylenol Tab) 650 mg Q6H PRN PO PAIN LEVEL 1-3 OR FEVER Last administered on 05/17/16 08:44; Admin Dose 650 MG; Start 05/15/16 at 17:00 Acetaminophen/ Hydrocodone Bitart ([place] (5/325)) 1 tab Q6H PRN PO MODERATE PAIN LEVEL 4-6; Start 05/15/16 at 17:00 Docusate Sodium (Colace) 100 mg Q12H PRN PO CONSTIPATION; Start 05/15/16 at 17: 00 Bisacodyl (Dulcolax) 5 mg DAILY PRN PO CONSTIPATION; Start 05/15/16 at 17:00 Pantoprazole (Protonix Tab) 40 mg DAILY@06 PO Last administered on 05/17/16 06 :16; Admin Dose 40 MG; Start 05/16/16 at 06:00 Enoxaparin Sodium 40 mg 40 mg DAILY SC Last administered on 05/17/16 08:51; Admin Dose 40 MG; Start 05/16/16 at 09:00 Ceftriaxone Sodium (Rocephin) 50 ml @ 100 mls/hr Q24H IVPB Last administered on 05/17/16 14:24; Admin Dose 100 MLS/HR; Start 05/16/16 at 14:00 Azithromycin (Zithromax) 250 mg DAILY PO Last administered on 05/17/16 08:45; Admin Dose 250 MG; Start 05/16/16 at 09:00 Aspirin (Aspirin) 81 mg DAILY PO Last administered on 05/17/16 08:44; Admin Dose 81 MG; Start 05/15/16 at 18:30 Hydralazine HCl (Apresoline) 10 mg Q6H PRN IV ELEVATED SYSTOLIC BP; Start 05/16 at 03:00 Lisinopril (Zestril) 5 mg DAILY PO Last administered on 05/17/16 08:44; Admin Dose 5 MG; Start 05/17/16 at 09:00 Carvedilol (Coreg) 3.125 mg BID PO Last administered on 05/17/16 08:44; Admin Dose 3.125 MG; Start 05/16/16 at 21:00 Atorvastatin Calcium (Lipitor) 10 mg HS PO Last administered on 05/16/16 20:12 ; Admin Dose 10 MG; Start 05/16/16 at 21:00 Furosemide (Lasix) 20 mg DAILY PO ; Start 05/18/16 at 09:00 Potassium Chloride (Klor-Con 10) 10 meq DAILY PO ; Start 05/18/16 at 09:[address] brain 05/15/16 IMPRESSION: 1. Subtle loss of rousseau-white matter differentiation involving the left parietal / occipital lobe, concerning for acute infarct. MRI is recommended for further evaluation. 2. No intracranial hemorrhage, extra-axial fluid collection, mass lesion or hydrocephalous. 3. Moderate peripheral and central cerebral volume loss. 4. Moderate patchy periventricular and subcortical white matter hypodensity, likely related to chronic microangiopathic changes. The above findings were discussed with Patient's Nurse Em by telephone on 11:04:29 PM. RPTAT: HGAS .Jesus Guzman MD, MD Date Time Electronically viewed and signed by .Jesus Guzman MD, on 05/15/2016 23: 06 KEHINDE MCLAUGHLIN MD May 17, 2016 16:25
[2016-05-17] MEDS: ATORVASTATIN 10 MG TAB PO SCH (21:19)
[2016-05-18] VITALS (13 sets, daily range): BP systolic 128–165; BP diastolic 66–89; PULSE 89–101; RESP 16–20
[2016-05-18] MEDS: SOD CHLORIDE 0.9% 1,000 ML IV SCH ×2 (04:34→18:45)
[2016-05-18] MEDS: PANTOPRAZOLE (EC) 40 MG TAB PO SCH (06:30)
[2016-05-18] MEDS: ASPIRIN 81 MG TAB PO SCH (09:38)
[2016-05-18] MEDS: AZITHROMYCIN 250 MG TAB PO SCH (09:38)
[2016-05-18] MEDS: FUROSEMIDE 20 MG TAB PO SCH (09:38)
[2016-05-18] MEDS: LISINOPRIL 5 MG TAB PO SCH (09:38)
[2016-05-18] MEDS: POTASSIUM CHLORIDE (SR) 10 MEQ TAB PO SCH (09:39)
[2016-05-18] MEDS: ENOXAPARIN 40 MG/0.4 ML SYG SC SCH (09:45)
--- NOTE | 2016-05-18 13:25 | PN ---
DATE: 05/18/2016 INTERNAL MEDICINE FOLLOWUP SUBJECTIVE: Chart reviewed. Events noted. The patient on 2 L nasal cannula, saturating 95%. Neur o evaluation noted. MRI of brain is pending at this time. PHYSICAL EXAMINATION: VITAL SIGNS: Blood pressure 136/67, pulse 99, respirations 18, temperature 98. HEENT: Pupils are equal and reactive to light. Anicteric sclerae. NECK: Supple, no JVD noted. No cervical adenopathy. No carotid bruits heard. LUNGS: Fair breath sounds bilaterally. CARDIOVASCULAR: S1, S2 normal. ABDOMEN: Soft, nontender. No organomegaly or masses noted. EXTREMITIES: No clubbing, cyanosis noted. NEUROLOGIC: Right lower extremity weakness. IMPRESSION: 1. Pneumonia. 2. Rule out cerebrovascular accident. 3. Acute on chronic left ventricular systolic failure. 4. Pulmonary hypertension. 5. Essential hypertension. 6. Dyslipidemia. 7. History of coronary artery disease. PLAN: 1. Neurologic evaluation noted. 2. Await MRI of the brain. 3. Continue current meds. 4. After MRI and neurology followup, we will pursue discharge planning to a fpc facilit y. Dictated By: STEPHAN EUCEDA MD, MA/SAE Conf#: [id number] DID#: [id number]
[2016-05-18] MEDS: CEFTRIAXONE 1 GM/50 ML (PMX) 50 ML IVPB SCH (14:40)
--- NOTE | 2016-05-18 15:55 | CONS ---
Date/Time of Note Date/Time of Note DATE: 05/18/16 TIME: 15:52 Assessment/Plan Assessment/Plan Chief Complaint/Hosp Course Right sided weakness Problems: Additional Assessment/Plan 80-year-old was admitted having body aches x2 weeks accompanied with cough and congestion. The patient stated he has been coughing greenish phlegm, has been having runny nose and sore throat. Denies any shortness of breath, chest pain, palpitations, edema, orthopnea.Ct brain showed subtle loss of rousseau white matter differentiation in left parietal occipital region. Examination showed weakness in right LE weakness and Aphasia. Rule out cute stroke. Carotid ultrasound is un remarkable. Plan: 1 MRI of brain is pending 2 will follow Echocardiogram 3 Continue Aspirin and Atorvastatin 4 OT/PT/Speech evaluation 5 will follow Consultation Date/Type/Reason Admit Date/Time May 15, 2016 at 15:12 Initial Consult Date 05/17/16 Type of Consultation: Neurology Reason for Consultation right sided weakness 24 HR Interval Summary Free Text/Dictation Clinically un changed. Still confused and right sided weakness. MRI of brain is pending. Carotid ultrasound is un remarkable. Constitutional: improved Exam/Review of Systems Vital Signs Vitals Vital Signs Date Time Temp Pulse Resp B/P Pulse Ox O2 Delivery O2 Flow Rate FiO2 05/18/16 15:34 97.7 102 18 139/89 95 05/18/16 08:20 Nasal Cannula 2.0 Intake and Output 05/17/16 05/17/16 05/18/16 15:00 23:00 07:00 Intake Total 180 ml Balance 180 ml Exam Constitutional: alert, well developed Psych: confusion Head: atraumatic, normocephalic Eyes: EOMI, nl conjunctiva, nl lids, nl sclera ENMT: mucosa pink and moist, nl external ears & nose, nl lips & teeth, nl nasal mucosa & septum Neck: non-tender, supple Respiratory: clear to auscultation, normal air movement Cardiovascular: nl pulses, regular rate and rhythm Gastrointestinal: nl liver, spleen, non-tender, soft Musculoskeletal: nl extremities to inspection Extremities: normal pulses Neurological: other (Alert awake, confused, right hemiparetic) Results Result Diagram: 05/16/16 0520 05/17/16 0600 Medications Medications Current Medications Sodium Chloride (NS) 1,000 ml @ 50 mls/hr Q20H IV Last administered on 06:30; Admin Dose 50 MLS/HR; Start 05/15/16 at 16:51 Ondansetron HCl (Zofran Tab) 4 mg Q6H PRN PO NAUSEA AND/OR VOMITING; Start at 17:00 Acetaminophen (Tylenol Tab) 650 mg Q6H PRN PO PAIN LEVEL 1-3 OR FEVER Last administered on 05/17/16 08:44; Admin Dose 650 MG; Start 05/15/16 at 17:00 Acetaminophen/ Hydrocodone Bitart ([place] (5/325)) 1 tab Q6H PRN PO MODERATE PAIN LEVEL 4-6; Start 05/15/16 at 17:00 Docusate Sodium (Colace) 100 mg Q12H PRN PO CONSTIPATION; Start 05/15/16 at 17: 00 Bisacodyl (Dulcolax) 5 mg DAILY PRN PO CONSTIPATION; Start 05/15/16 at 17:00 Pantoprazole (Protonix Tab) 40 mg DAILY@06 PO Last administered on 05/18/16 06 :30; Admin Dose 40 MG; Start 05/16/16 at 06:00 Enoxaparin Sodium 40 mg 40 mg DAILY SC Last administered on 05/18/16 09:45; Admin Dose 40 MG; Start 05/16/16 at 09:00 Ceftriaxone Sodium (Rocephin) 50 ml @ 100 mls/hr Q24H IVPB Last administered on 05/18/16 14:40; Admin Dose 100 MLS/HR; Start 05/16/16 at 14:00 Azithromycin (Zithromax) 250 mg DAILY PO Last administered on 05/18/16 09:38; Admin Dose 250 MG; Start 05/16/16 at 09:00 Aspirin (Aspirin) 81 mg DAILY PO Last administered on 05/18/16 09:38; Admin Dose 81 MG; Start 05/15/16 at 18:30 Hydralazine HCl (Apresoline) 10 mg Q6H PRN IV ELEVATED SYSTOLIC BP; Start 05/16 at 03:00 Lisinopril (Zestril) 5 mg DAILY PO Last administered on 05/18/16 09:38; Admin Dose 5 MG; Start 05/17/16 at 09:00 Carvedilol (Coreg) 3.125 mg BID PO Last administered on 05/18/16 09:39; Admin Dose 3.125 MG; Start 05/16/16 at 21:00 Atorvastatin Calcium (Lipitor) 10 mg HS PO Last administered on 05/17/16 21:19 ; Admin Dose 10 MG; Start 05/16/16 at 21:00 Furosemide (Lasix) 20 mg DAILY PO Last administered on 05/18/16 09:38; Admin Dose 20 MG; Start 05/18/16 at 09:00 Potassium Chloride (Klor-Con 10) 10 meq DAILY PO Last administered on 09:39; Admin Dose 10 MEQ; Start 05/18/16 at 09:00 KEHINDE MCLAUGHLIN MD May 18, 2016 15:55
[2016-05-18] MEDS: ATORVASTATIN 10 MG TAB PO SCH (21:28)
[2016-05-19] VITALS (18 sets, daily range): BP systolic 137–167; BP diastolic 16–90; PULSE 92–108; RESP 17–20
[2016-05-19] MEDS: PANTOPRAZOLE (EC) 40 MG TAB PO SCH (06:16)
[2016-05-19] MEDS: ASPIRIN 81 MG TAB PO SCH (09:33)
[2016-05-19] MEDS: LISINOPRIL 5 MG TAB PO SCH (09:33)
[2016-05-19] MEDS: POTASSIUM CHLORIDE (SR) 10 MEQ TAB PO SCH (09:34)
[2016-05-19] MEDS: FUROSEMIDE 20 MG TAB PO SCH (09:34)
[2016-05-19] MEDS: ENOXAPARIN 40 MG/0.4 ML SYG SC SCH (09:36)
[2016-05-19] MEDS: AZITHROMYCIN 250 MG TAB PO SCH (09:39)
[2016-05-19] MEDS: CEFTRIAXONE 1 GM/50 ML (PMX) 50 ML IVPB SCH (13:29)
--- NOTE | 2016-05-19 15:55 | CONS ---
Date/Time of Note Date/Time of Note DATE: 05/19/16 TIME: 15:50 Assessment/Plan Assessment/Plan Chief Complaint/Hosp Course Right sided weakness Problems: Additional Assessment/Plan 80-year-old was admitted having body aches x2 weeks accompanied with cough and congestion. The patient stated he has been coughing greenish phlegm, has been having runny nose and sore throat. Denies any shortness of breath, chest pain, palpitations, edema, orthopnea.Ct brain showed subtle loss of rousseau white matter differentiation in left parietal occipital region. Examination showed weakness in right LE weakness and Aphasia. Rule out cute stroke. Carotid ultrasound is un remarkable. Plan: 1 MRI of brain is pending 2 will follow Echocardiogram 3 Continue Aspirin and Atorvastatin 4 OT/PT/Speech evaluation 5 Dr. Bennett will follow Consultation Date/Type/Reason Admit Date/Time May 15, 2016 at 15:12 Initial Consult Date 05/17/16 Type of Consultation: Neurology 24 HR Interval Summary Free Text/Dictation Clinically unchanged. MRI of brain is pending. He was noted to be confused and is currently has restrains. Exam/Review of Systems Vital Signs Vitals Vital Signs Date Time Temp Pulse Resp B/P Pulse Ox O2 Delivery O2 Flow Rate FiO2 05/19/16 14:00 98.2 102 20 152/82 94 05/19/16 10:45 Nasal Cannula 2.0 Intake and Output 05/18/16 05/18/16 05/19/16 15:00 23:00 07:00 Intake Total 50 ml 1210 ml 50 ml Balance 50 ml 1210 ml 50 ml Exam Constitutional: alert Psych: confusion Head: atraumatic, normocephalic Eyes: EOMI, nl conjunctiva, nl lids, nl sclera ENMT: mucosa pink and moist, nl external ears & nose, nl lips & teeth, nl nasal mucosa & septum Neck: non-tender, supple Respiratory: clear to auscultation, normal air movement Cardiovascular: nl pulses, regular rate and rhythm Gastrointestinal: nl liver, spleen, non-tender, soft Musculoskeletal: nl extremities to inspection Extremities: normal pulses Neurological: other (right hemiparesis, leg is worse than arm) Results Result Diagram: 05/16/16 0520 05/17/16 0600 Medications Medications Current Medications Sodium Chloride (NS) 1,000 ml @ 50 mls/hr Q20H IV Last administered on 18:45; Admin Dose 50 MLS/HR; Start 05/15/16 at 16:51 Ondansetron HCl (Zofran Tab) 4 mg Q6H PRN PO NAUSEA AND/OR VOMITING; Start at 17:00 Acetaminophen (Tylenol Tab) 650 mg Q6H PRN PO PAIN LEVEL 1-3 OR FEVER Last administered on 05/17/16 08:44; Admin Dose 650 MG; Start 05/15/16 at 17:00 Acetaminophen/ Hydrocodone Bitart ([place] (5/325)) 1 tab Q6H PRN PO MODERATE PAIN LEVEL 4-6; Start 05/15/16 at 17:00 Docusate Sodium (Colace) 100 mg Q12H PRN PO CONSTIPATION; Start 05/15/16 at 17: 00 Bisacodyl (Dulcolax) 5 mg DAILY PRN PO CONSTIPATION; Start 05/15/16 at 17:00 Pantoprazole (Protonix Tab) 40 mg DAILY@06 PO Last administered on 05/19/16 06 :16; Admin Dose 40 MG; Start 05/16/16 at 06:00 Enoxaparin Sodium 40 mg 40 mg DAILY SC Last administered on 05/19/16 09:36; Admin Dose 40 MG; Start 05/16/16 at 09:00 Ceftriaxone Sodium (Rocephin) 50 ml @ 100 mls/hr Q24H IVPB Last administered on 05/19/16 13:29; Admin Dose 100 MLS/HR; Start 05/16/16 at 14:00 Azithromycin (Zithromax) 250 mg DAILY PO Last administered on 05/19/16 09:39; Admin Dose 250 MG; Start 05/16/16 at 09:00 Aspirin (Aspirin) 81 mg DAILY PO Last administered on 05/19/16 09:33; Admin Dose 81 MG; Start 05/15/16 at 18:30 Hydralazine HCl (Apresoline) 10 mg Q6H PRN IV ELEVATED SYSTOLIC BP; Start 05/16 at 03:00 Lisinopril (Zestril) 5 mg DAILY PO Last administered on 05/19/16 09:33; Admin Dose 5 MG; Start 05/17/16 at 09:00 Carvedilol (Coreg) 3.125 mg BID PO Last administered on 05/19/16 09:34; Admin Dose 3.125 MG; Start 05/16/16 at 21:00 Atorvastatin Calcium (Lipitor) 10 mg HS PO Last administered on 05/18/16 21:28 ; Admin Dose 10 MG; Start 05/16/16 at 21:00 Furosemide (Lasix) 20 mg DAILY PO Last administered on 05/19/16 09:34; Admin Dose 20 MG; Start 05/18/16 at 09:00 Potassium Chloride (Klor-Con 10) 10 meq DAILY PO Last administered on 09:34; Admin Dose 10 MEQ; Start 05/18/16 at 09:00 KEHINDE MCLAUGHLIN MD May 19, 2016 15:55
--- NOTE | 2016-05-19 16:48 | PN ---
DATE: 05/19/2016 SUBJECTIVE: Chart reviewed. Neuro followup noted. PHYSICAL EXAMINATION: VITAL SIGNS: Blood pressure 142/86, pulse 108, respirations 19, temperature 98.1, currently on 2 li ters nasal cannula, saturating 93%. HEENT: Pupils are equal and reactive to light. NECK: Supple, no JVD noted, no cervical lymphadenopathy noted, no carotid bruits heard. LUNGS: A few scattered rhonchi. CARDIOVASCULAR: S1, S2 normal. ABDOMEN: Soft, nontender. No organomegaly or masses noted. EXTREMITIES: No clubbing or cyanosis noted. NEUROLOGIC: Right lower extremity weakness. LABORATORY DATA: MRI is still pending. No new labs. IMPRESSION: 1. Pneumonia. 2. Likely cerebrovascular accident. 3. Acute on chronic left ventricular systolic failure. 4. Pulmonary hypertension. 5. Essential hypertension. 6. Dyslipidemia. 7. History of coronary artery disease. RECOMMENDATIONS: 1. Neuro followup. 2. Check MRI. 3. Physical therapy evaluation. 4. Likely will need alf facility upon discharge. Dictated By: STEPHAN EUCEDA MD, MA/SAE Conf#: [id number] DID#: [id number]
[2016-05-19] MEDS: SOD CHLORIDE 0.9% 1,000 ML IV SCH (20:34)
[2016-05-19] MEDS: ATORVASTATIN 10 MG TAB PO SCH (22:09)
[2016-05-20] VITALS (17 sets, daily range): BP systolic 138–177; BP diastolic 72–100; PULSE 90–103; RESP 17–22
[2016-05-20] MEDS: PANTOPRAZOLE (EC) 40 MG TAB PO SCH (05:54)
--- NOTE | 2016-05-20 07:46 | PN ---
DATE: 05/19/2016 CARDIOLOGY PROGRESS NOTE The patient has become more confused over the last 24 hours and combative, states that he wishes to be left alone. 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 PHYSICAL EXAMINATION: GENERAL: He appears to be in no distress, resting comfortably in a hospital bed. VITAL SIGNS: Temperature 97.8, pulse 95, sinus rhythm, blood pressure 154/87. He is mildly agitated . NECK: There is no jugular venous distention. LUNGS: Clear. CARDIAC: Exam reveals a regular rate and rhythm. ABDOMEN: Soft. EXTREMITIES: Reveal no edema. CURRENT MEDICATIONS: 1. Furosemide 20 mg daily. 2. Potassium. 3. Lisinopril. 4. Carvedilol. 5. Lipitor. 6. Ceftriaxone. 7. Lovenox. 8. Azithromycin. 9. Protonix. 10. Aspirin. LABORATORY RESULTS: White count rising at 15.4, hematocrit 39, platelet count 344. Sodium 144, pot assium 3.5, BUN 17, creatinine 0.58. From a cardiology perspective, appears stable. Rising white count along with confusion is concerning for occult infection. Dictated By: PAPI SÁNCHEZ/SAE Conf#: [id number] DID#: [id number]
[2016-05-20] MEDS: AZITHROMYCIN 250 MG TAB PO SCH (09:37)
[2016-05-20] MEDS: ASPIRIN 81 MG TAB PO SCH (09:37)
[2016-05-20] MEDS: POTASSIUM CHLORIDE (SR) 10 MEQ TAB PO SCH (09:37)
[2016-05-20] MEDS: FUROSEMIDE 20 MG TAB PO SCH (09:37)
[2016-05-20] MEDS: LISINOPRIL 5 MG TAB PO SCH (09:37)
[2016-05-20] MEDS: ENOXAPARIN 40 MG/0.4 ML SYG SC SCH (09:38)
--- NOTE | 2016-05-20 13:17 | CONS ---
Date/Time of Note Date/Time of Note DATE: 05/20/16 TIME: 13:15 Consult Date/Type/Reason Admit Date/Time May 15, 2016 at 15:12 Initial Consult Date 05/17/16 Type of Consultation: Neurology Reason for Consultation evaluate for CVA Subjective remains agitated in bed without clothes encephalopathic Objective Vital Signs Date Time Temp Pulse Resp B/P Pulse Ox O2 Delivery O2 Flow Rate FiO2 05/20/16 12:14 90 05/20/16 12:00 97.8 20 154/92 94 05/20/16 08:10 Nasal Cannula 2.0 Intake and Output 05/19/16 05/19/16 05/20/16 15:00 23:00 07:00 Intake Total 50 ml 1400 ml 560 ml Balance 50 ml 1400 ml 560 ml Exam Constitutional: alert Psych: confusion Head: atraumatic, normocephalic Eyes: EOMI, nl conjunctiva, nl lids, nl sclera ENMT: mucosa pink and moist, nl external ears & nose, nl lips & teeth, nl nasal mucosa & septum Neck: non-tender, supple Respiratory: clear to auscultation, normal air movement Cardiovascular: nl pulses, regular rate and rhythm Gastrointestinal: nl liver, spleen, non-tender, soft Musculoskeletal: nl extremities to inspection Extremities: normal pulses Neurological: other (right hemiparesis, leg is worse than arm) Results/Medications Result Diagram: 05/16/16 0520 05/17/16 0600 Medications Current Medications Sodium Chloride (NS) 1,000 ml @ 50 mls/hr Q20H IV Last administered on 18:45; Admin Dose 50 MLS/HR; Start 05/15/16 at 16:51 Ondansetron HCl (Zofran Tab) 4 mg Q6H PRN PO NAUSEA AND/OR VOMITING; Start at 17:00 Acetaminophen (Tylenol Tab) 650 mg Q6H PRN PO PAIN LEVEL 1-3 OR FEVER Last administered on 05/17/16 08:44; Admin Dose 650 MG; Start 05/15/16 at 17:00 Acetaminophen/ Hydrocodone Bitart ([place] (5/325)) 1 tab Q6H PRN PO MODERATE PAIN LEVEL 4-6; Start 05/15/16 at 17:00 Docusate Sodium (Colace) 100 mg Q12H PRN PO CONSTIPATION; Start 05/15/16 at 17: 00 Bisacodyl (Dulcolax) 5 mg DAILY PRN PO CONSTIPATION; Start 05/15/16 at 17:00 Pantoprazole (Protonix Tab) 40 mg DAILY@06 PO Last administered on 05/20/16 05 :54; Admin Dose 40 MG; Start 05/16/16 at 06:00 Enoxaparin Sodium 40 mg 40 mg DAILY SC Last administered on 05/20/16 09:38; Admin Dose 40 MG; Start 05/16/16 at 09:00 Ceftriaxone Sodium (Rocephin) 50 ml @ 100 mls/hr Q24H IVPB Last administered on 05/19/16 13:29; Admin Dose 100 MLS/HR; Start 05/16/16 at 14:00 Azithromycin (Zithromax) 250 mg DAILY PO Last administered on 05/20/16 09:37; Admin Dose 250 MG; Start 05/16/16 at 09:00 Aspirin (Aspirin) 81 mg DAILY PO Last administered on 05/20/16 09:37; Admin Dose 81 MG; Start 05/15/16 at 18:30 Hydralazine HCl (Apresoline) 10 mg Q6H PRN IV ELEVATED SYSTOLIC BP; Start 05/16 at 03:00 Lisinopril (Zestril) 5 mg DAILY PO Last administered on 05/20/16 09:37; Admin Dose 5 MG; Start 05/17/16 at 09:00 Carvedilol (Coreg) 3.125 mg BID PO Last administered on 05/20/16 09:37; Admin Dose 3.125 MG; Start 05/16/16 at 21:00 Atorvastatin Calcium (Lipitor) 10 mg HS PO Last administered on 05/19/16 22:09 ; Admin Dose 10 MG; Start 05/16/16 at 21:00 Furosemide (Lasix) 20 mg DAILY PO Last administered on 05/20/16 09:37; Admin Dose 20 MG; Start 05/18/16 at 09:00 Potassium Chloride (Klor-Con 10) 10 meq DAILY PO Last administered on 09:37; Admin Dose 10 MEQ; Start 05/18/16 at 09:00 Assessment/Plan Chief Complaint/Hosp Course 80-year-old was admitted having body aches x2 weeks accompanied with cough and congestion. The patient stated he has been coughing greenish phlegm, has been having runny nose and sore throat. Denies any shortness of breath, chest pain, palpitations, edema, orthopnea.Ct brain showed subtle loss of rousseau white matter differentiation in left parietal occipital region. Examination showed weakness in right LE weakness and Aphasia. Rule out cute stroke. Carotid ultrasound is un remarkable. EF:30% -pending MRI Brain w/o contrast -c/w ASA, Lipitor -PT/OT/Speech further recommendations after imaging completed, if suspicion for cardioembolic stroke may require anticoagulation Problems: JANELLE GIBSON MD May 20, 2016 13:17
[2016-05-20] MEDS ORDERED: ALBUTEROL 0.083% (NEB) 2.5 MG/3 ML AMP HHN PRN (13:30)
[2016-05-20] MEDS ORDERED: METHYLPREDNISOLONE 125 MG INJ IV ONE (13:30)
[2016-05-20] MEDS: CEFTRIAXONE 1 GM/50 ML (PMX) 50 ML IVPB SCH (13:34)
[2016-05-20] MEDS: SOD CHLORIDE 0.9% 1,000 ML IV SCH ×2 (13:35→15:35)
[2016-05-20] MEDS ORDERED: LORAZEPAM 2 MG INJ IV ONE (14:00)
--- NOTE | 2016-05-20 16:03 | RADRPT ---
PROCEDURE: XR Chest. CLINICAL INDICATION: Shortness of breath. TECHNIQUE: Single frontal view. COMPARISON: 05/16/2016. FINDINGS: There is air space disease bilaterally consistent with pulmonary edema and right upper lobe pneumoni a, worse than seen previously. The heart is enlarged. There is calcification in the aorta consiste nt with atherosclerosis. There are sternal wires and mediastinal clips. There are small bilateral pleural effusions. There is no pneumothorax. IMPRESSION: 1. Worse appearance of the lungs. 2. No other change from 05/16/2016. RPTAT: QQ .Abisai Monroy MD, MD Date Time Electronically viewed and signed by .Abisai Monroy MD, MD on 05/20/2016 16:03 .R/
--- NOTE | 2016-05-20 16:21 | PN ---
Date/Time of Note Date/Time of Note DATE: 05/20/16 TIME: 16:19 Assessment/Plan VTE Prophylaxis VTE Prophylaxis Intervention: other Lines/Catheters [facility] Per[facility] IV Assessment/Plan Chief Complaint/Hosp Course ASSESSMENT AND PLAN: 1. CVA , neurology has been consulted, continue aspirin, statin Follow-up neurology recommendation 1. Pneumonia. Continue antibiotics 2. History of coronary artery disease. With history of noncompliance with medical management, continue aspirin and statin 3. History of hypertension. Better controlled on medical management 4. History of dyslipidemia. Continue statin 5. Generalized weakness. 6. Congestive heart failure. 7. Altered mental status. Likely secondary to sundowning and and hospital- acquired dementia We will continue to monitor patient closely. Further recommendations, management and treatment as per clinical course. Problems: Subjective 24 Hr Interval Summary Free Text/Dictation Patient has been combative and agitated Minimal p.o. intake Has been placed on soft restraint Exam/Review of Systems Vital Signs Vitals Vital Signs Date Time Temp Pulse Resp B/P Pulse Ox O2 Delivery O2 Flow Rate FiO2 05/20/16 16:15 94 05/20/16 15:50 98.5 20 168/86 90 05/20/16 08:10 Nasal Cannula 2.0 Intake and Output 05/19/16 05/19/16 05/20/16 15:00 23:00 07:00 Intake Total 50 ml 1400 ml 560 ml Balance 50 ml 1400 ml 560 ml Exam General: The patient is groggy with episodes of agitation HEENT: Atraumatic, normocephalic. The pupils are equal and round . Neck: Supple with full range of motion. Chest: Normal expansion of the thorax during inspiration Lungs: Clear to auscultation bilaterally Heart: Normal S1-S2, Regular rhythm and rate. Abdomen: Soft , nontender, nondistended , bowel sounds are present. Extremities: Normal to inspection, no edema no cyanosis Neurologic: ,The patient is awake, not oriented to time and place Results Result Diagram: 05/16/16 0520 05/17/16 0600 Medications Medications Current Medications Sodium Chloride (NS) 1,000 ml @ 50 mls/hr Q20H IV Last administered on t 13:35; Admin Dose 50 MLS/HR; Start 05/15/16 at 16:51 Ondansetron HCl (Zofran Tab) 4 mg Q6H PRN PO NAUSEA AND/OR VOMITING; Start at 17:00 Acetaminophen (Tylenol Tab) 650 mg Q6H PRN PO PAIN LEVEL 1-3 OR FEVER Last administered on 05/17/16 08:44; Admin Dose 650 MG; Start 05/15/16 at 17:00 Docusate Sodium (Colace) 100 mg Q12H PRN PO CONSTIPATION; Start 05/15/16 at 17: 00 Bisacodyl (Dulcolax) 5 mg DAILY PRN PO CONSTIPATION; Start 05/15/16 at 17:00 Pantoprazole (Protonix Tab) 40 mg DAILY@06 PO Last administered on 05/20/16 05 :54; Admin Dose 40 MG; Start 05/16/16 at 06:00 Enoxaparin Sodium 40 mg 40 mg DAILY SC Last administered on 05/20/16 09:38; Admin Dose 40 MG; Start 05/16/16 at 09:00 Ceftriaxone Sodium (Rocephin) 50 ml @ 100 mls/hr Q24H IVPB Last administered on 05/20/16 13:34; Admin Dose 100 MLS/HR; Start 05/16/16 at 14:00 Azithromycin (Zithromax) 250 mg DAILY PO Last administered on 05/20/16 09:37; Admin Dose 250 MG; Start 05/16/16 at 09:00 Aspirin (Aspirin) 81 mg DAILY PO Last administered on 05/20/16 09:37; Admin Dose 81 MG; Start 05/15/16 at 18:30 Hydralazine HCl (Apresoline) 10 mg Q6H PRN IV ELEVATED SYSTOLIC BP; Start 05/16 at 03:00 Lisinopril (Zestril) 5 mg DAILY PO Last administered on 05/20/16 09:37; Admin Dose 5 MG; Start 05/17/16 at 09:00 Carvedilol (Coreg) 3.125 mg BID PO Last administered on 05/20/16 09:37; Admin Dose 3.125 MG; Start 05/16/16 at 21:00 Atorvastatin Calcium (Lipitor) 10 mg HS PO Last administered on 05/19/16 22:09 ; Admin Dose 10 MG; Start 05/16/16 at 21:00 Furosemide (Lasix) 20 mg DAILY PO Last administered on 05/20/16 09:37; Admin Dose 20 MG; Start 05/18/16 at 09:00 Potassium Chloride (Klor-Con 10) 10 meq DAILY PO Last administered on 09:37; Admin Dose 10 MEQ; Start 05/18/16 at 09:00 Quetiapine Fumarate (Seroquel) 25 mg BID PO ; Start 05/20/16 at 21:00 LUIS GOODWIN MD May 20, 2016 16:21
--- NOTE | 2016-05-20 18:37 | CONS ---
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 Would start IV diuretics. Check labs Consultation Date/Type/Reason Admit Date/Time May 15, 2016 at 15:12 Type of Consultation: cv 24 HR Interval Summary Free Text/Dictation Patient seen and examined. Sleeping Exam/Review of Systems Vital Signs Vitals Vital Signs Date Time Temp Pulse Resp B/P Pulse Ox O2 Delivery O2 Flow Rate FiO2 05/20/16 18:00 101 22 154/89 05/20/16 15:50 98.5 90 05/20/16 08:10 Nasal Cannula 2.0 Intake and Output 05/19/16 05/19/16 05/20/16 15:00 23:00 07:00 Intake Total 50 ml 1400 ml 560 ml Balance 50 ml 1400 ml 560 ml Exam Sleeping, no apparent distress Head: normocephalic Respiratory: other (Coarse breath sounds bilaterally with scattered mild crackles and mild wheezing) Cardiovascular: other (S1-S2 heard), regular rate and rhythm, systolic murmur Gastrointestinal: bowel sounds, non-tender, other (No guarding), soft Extremities: edema, other (No cyanosis) Results Result Diagram: 05/16/16 0520 05/17/16 0600 Medications Medications Current Medications Sodium Chloride (NS) 1,000 ml @ 50 mls/hr Q20H IV Last administered on 13:35; Admin Dose 50 MLS/HR; Start 05/15/16 at 16:51 Ondansetron HCl (Zofran Tab) 4 mg Q6H PRN PO NAUSEA AND/OR VOMITING; Start at 17:00 Acetaminophen (Tylenol Tab) 650 mg Q6H PRN PO PAIN LEVEL 1-3 OR FEVER Last administered on 05/17/16 08:44; Admin Dose 650 MG; Start 05/15/16 at 17:00 Docusate Sodium (Colace) 100 mg Q12H PRN PO CONSTIPATION; Start 05/15/16 at 17: 00 Bisacodyl (Dulcolax) 5 mg DAILY PRN PO CONSTIPATION; Start 05/15/16 at 17:00 Pantoprazole (Protonix Tab) 40 mg DAILY@06 PO Last administered on 05/20/16 05 :54; Admin Dose 40 MG; Start 05/16/16 at 06:00 Enoxaparin Sodium 40 mg 40 mg DAILY SC Last administered on 05/20/16 09:38; Admin Dose 40 MG; Start 05/16/16 at 09:00 Ceftriaxone Sodium (Rocephin) 50 ml @ 100 mls/hr Q24H IVPB Last administered on 05/20/16 13:34; Admin Dose 100 MLS/HR; Start 05/16/16 at 14:00 Azithromycin (Zithromax) 250 mg DAILY PO Last administered on 05/20/16 09:37; Admin Dose 250 MG; Start 05/16/16 at 09:00 Aspirin (Aspirin) 81 mg DAILY PO Last administered on 05/20/16 09:37; Admin Dose 81 MG; Start 05/15/16 at 18:30 Hydralazine HCl (Apresoline) 10 mg Q6H PRN IV ELEVATED SYSTOLIC BP; Start 05/16 at 03:00 Lisinopril (Zestril) 5 mg DAILY PO Last administered on 05/20/16 09:37; Admin Dose 5 MG; Start 05/17/16 at 09:00 Carvedilol (Coreg) 3.125 mg BID PO Last administered on 05/20/16 09:37; Admin Dose 3.125 MG; Start 05/16/16 at 21:00 Atorvastatin Calcium (Lipitor) 10 mg HS PO Last administered on 05/19/16 22:09 ; Admin Dose 10 MG; Start 05/16/16 at 21:00 Furosemide (Lasix) 20 mg DAILY PO Last administered on 05/20/16 09:37; Admin Dose 20 MG; Start 05/18/16 at 09:00 Potassium Chloride (Klor-Con 10) 10 meq DAILY PO Last administered on 09:37; Admin Dose 10 MEQ; Start 05/18/16 at 09:00 Quetiapine Fumarate (Seroquel) 25 mg BID PO ; Start 05/20/16 at 21:00 Shelton Beal DO May 20, 2016 18:36
[2016-05-20] MEDS: QUETIAPINE 25 MG TAB PO SCH (21:10)
[2016-05-20] MEDS: ATORVASTATIN 10 MG TAB PO SCH (21:10)
[2016-05-20] MEDS: FUROSEMIDE 20 MG INJ IV SCH (21:11)
[2016-05-21] VITALS (15 sets, daily range): BP systolic 134–165; BP diastolic 67–104; PULSE 87–102; RESP 18–22
[2016-05-21] MEDS: PANTOPRAZOLE (EC) 40 MG TAB PO SCH (05:12)
[2016-05-21] MEDS: FUROSEMIDE 20 MG INJ IV SCH ×2 (05:12→17:47)
[2016-05-21 07:38] LABS: ADD SCAN DIFF NO
[2016-05-21 07:51] LABS: BASOPHILS % 0.2 % (0.0-2.0); EOSINOPHILS % 0.2 % (0.0-7.0); HEMATOCRIT 42.5 % (42.0-52.0); HEMOGLOBIN 14.2 g/dl (14.0-18.0); LYMPHOCYTES # 2.8 10^3/ul (0.8-2.9); LYMPHOCYTES % 16.7 % (15.0-51.0); MEAN CORPUSCULAR HEMOGLOBIN 28.5 pg (29.0-33.0); MEAN CORPUSCULAR HGB CONC 33.4 g/dl (32.0-37.0); MEAN CORPUSCULAR VOLUME 85.3 fl (82.0-101.0); MONOCYTE # 0.7 10^3/ul (0.3-0.9); MONOCYTES % 4.1 % (0.0-11.0); NEUTROPHIL # 12.7 10^3/ul (1.6-7.5); NEUTROPHILS % 77.3 % (39.0-77.0); PLATELET COUNT 469 10^3/UL (140-415); RED BLOOD COUNT 4.98 10^6/ul (4.70-6.10); RED CELL DISTRIBUTION WIDTH 14.2 % (11.5-14.5); WHITE BLOOD COUNT 16.5 10^3/ul (4.8-10.8)
[2016-05-21 08:08] LABS: ALBUMIN 3.2 g/dl (3.3-4.9)
[2016-05-21 08:09] LABS: POTASSIUM 3.4 mmol/L (3.5-5.1)
[2016-05-21 08:11] LABS: ALBUMIN/GLOBULIN RATIO 0.78; BILIRUBIN,INDIRECT 0.3 mg/dl (0-1.1); BILIRUBIN,TOTAL 0.3 mg/dl (0.2-1.3); CREATININE 0.63 mg/dl (0.61-1.24); TOTAL PROTEIN 7.3 g/dl (6.1-8.1)
[2016-05-21 08:12] LABS: CALCIUM 9.6 mg/dl (8.4-10.2); MAGNESIUM 2.2 mg/dl (1.7-2.5); PHOSPHORUS 2.9 mg/dl (2.5-4.9)
[2016-05-21] MEDS: QUETIAPINE 25 MG TAB PO SCH ×2 (09:10→21:57)
[2016-05-21] MEDS: POTASSIUM CHLORIDE (SR) 10 MEQ TAB PO SCH (09:10)
[2016-05-21] MEDS: ASPIRIN 81 MG TAB PO SCH (09:10)
[2016-05-21] MEDS: AZITHROMYCIN 250 MG TAB PO SCH (09:10)
[2016-05-21] MEDS: LISINOPRIL 5 MG TAB PO SCH (09:11)
[2016-05-21] MEDS: ENOXAPARIN 40 MG/0.4 ML SYG SC SCH (09:12)
--- NOTE | 2016-05-21 09:40 | RADRPT ---
PROCEDURE: XR Chest. CLINICAL INDICATION: Shortness of breath. TECHNIQUE: Single frontal view. COMPARISON: 05/20/2016. FINDINGS: There is air space disease bilaterally consistent with pulmonary edema and right upper lobe pneumoni a, slightly improved. The heart is enlarged. There is calcification in the aorta consistent with a therosclerosis. There are sternal wires and mediastinal clips. There are small bilateral pleural effusions. There is no pneumothorax. IMPRESSION: 1. Slightly improved appearance of the lungs. 2. No other change from 05/20/2016. RPTAT: QQ .Abisai Monroy MD, MD Date Time Electronically viewed and signed by .Abisai Monroy MD, MD on 05/21/2016 09:40 .R/
[2016-05-21] MEDS: CEFTRIAXONE 1 GM/50 ML (PMX) 50 ML IVPB SCH (14:40)
--- NOTE | 2016-05-21 15:32 | PN ---
Date/Time of Note Date/Time of Note DATE: 05/21/16 TIME: 15:31 Assessment/Plan VTE Prophylaxis VTE Prophylaxis Intervention: LMWH Lines/Catheters IV C[facility] Type (from [facility] [place] Assessment/Plan Chief Complaint/Hosp Course ASSESSMENT AND PLAN: 1. CVA , neurology has been consulted, continue aspirin, statin Follow-up neurology recommendation 1. Pneumonia. Continue antibiotics 2. History of coronary artery disease. With history of noncompliance with medical management, continue aspirin and statin 3. History of hypertension. Better controlled on medical management 4. History of dyslipidemia. Continue statin 5. Generalized weakness. 6. Congestive heart failure. 7. Altered mental status. Likely secondary to sundowning and and hospital- acquired dementia We will continue to monitor patient closely. Further recommendations, management and treatment as per clinical course. Problems: Subjective 24 Hr Interval Summary Free Text/Dictation Patient continues to have episodes of agitation No nausea vomiting diarrhea Minimal p.o. intake Exam/Review of Systems Vital Signs Vitals Vital Signs Date Time Temp Pulse Resp B/P Pulse Ox O2 Delivery O2 Flow Rate FiO2 05/21/16 12:00 97.4 88 20 134/70 96 05/21/16 08:10 Nasal Cannula 2.0 Intake and Output 05/20/16 05/20/16 05/21/16 15:00 23:00 07:00 Intake Total 50 ml 400 ml 400 ml Output Total 550 ml Balance 50 ml -150 ml 400 ml Exam General: The patient is not in acute distress. HEENT: Atraumatic, normocephalic. The pupils are equal and round . Neck: Supple with full range of motion. Chest: Normal expansion of the thorax during inspiration Lungs: Clear to auscultation bilaterally Heart: Normal S1-S2, Regular rhythm and rate. Abdomen: Soft , nontender, nondistended , bowel sounds are present. Extremities: Normal to inspection, no edema no cyanosis Neurologic: Normal mental status,The patient is awake, alert and oriented . Results Result Diagram: 05/21/16 0700 05/21/16 0700 Results 24 hrs Laboratory Tests Test 05/21/16 07:00 Alanine Aminotransferase (ALT/SGPT) 60 Albumin 3.2 L Albumin/Globulin Ratio 0.78 Alkaline Phosphatase 92 Anion Gap 18 H Aspartate Amino Transf (AST/SGOT) 37 Basophils # 0.0 Basophils % 0.2 Blood Urea Nitrogen 16 Calcium Level 9.6 Carbon Dioxide Level 22 Chloride Level 107 Creatinine 0.63 Direct Bilirubin 0.00 Eosinophils # 0.0 Eosinophils % 0.2 Globulin 4.10 H Glucose Level 207 Hematocrit 42.5 Hemoglobin 14.2 Indirect Bilirubin 0.3 Lymphocytes # 2.8 Lymphocytes % 16.7 Magnesium Level 2.2 Mean Corpuscular Hemoglobin 28.5 L Mean Corpuscular Hemoglobin Concent 33.4 Mean Corpuscular Volume 85.3 Mean Platelet Volume 10.0 Monocytes # 0.7 Monocytes % 4.1 Neutrophils # 12.7 H Neutrophils % 77.3 H Nucleated Red Blood Cells # 0.0 Nucleated Red Blood Cells % 0.0 Phosphorus Level 2.9 Platelet Count 469 #H Potassium Level 3.4 L Red Blood Count 4.98 Red Cell Distribution Width 14.2 Sodium Level 144 Total Bilirubin 0.3 Total Protein 7.3 White Blood Count 16.5 H Medications Medications Current Medications Ondansetron HCl (Zofran Tab) 4 mg Q6H PRN PO NAUSEA AND/OR VOMITING; Start at 17:00 Acetaminophen (Tylenol Tab) 650 mg Q6H PRN PO PAIN LEVEL 1-3 OR FEVER Last administered on 05/17/16 08:44; Admin Dose 650 MG; Start 05/15/16 at 17:00 Docusate Sodium (Colace) 100 mg Q12H PRN PO CONSTIPATION; Start 05/15/16 at 17: 00 Bisacodyl (Dulcolax) 5 mg DAILY PRN PO CONSTIPATION; Start 05/15/16 at 17:00 Pantoprazole (Protonix Tab) 40 mg DAILY@06 PO Last administered on 05/21/16 05 :12; Admin Dose 40 MG; Start 05/16/16 at 06:00 Enoxaparin Sodium 40 mg 40 mg DAILY SC Last administered on 05/21/16 09:12; Admin Dose 40 MG; Start 05/16/16 at 09:00 Ceftriaxone Sodium (Rocephin) 50 ml @ 100 mls/hr Q24H IVPB Last administered on 05/21/16 14:40; Admin Dose 100 MLS/HR; Start 05/16/16 at 14:00 Azithromycin (Zithromax) 250 mg DAILY PO Last administered on 05/21/16 09:10; Admin Dose 250 MG; Start 05/16/16 at 09:00 Aspirin (Aspirin) 81 mg DAILY PO Last administered on 05/21/16 09:10; Admin Dose 81 MG; Start 05/15/16 at 18:30 Hydralazine HCl (Apresoline) 10 mg Q6H PRN IV ELEVATED SYSTOLIC BP; Start 05/16 at 03:00 Lisinopril (Zestril) 5 mg DAILY PO Last administered on 05/21/16 09:11; Admin Dose 5 MG; Start 05/17/16 at 09:00 Carvedilol (Coreg) 3.125 mg BID PO Last administered on 05/21/16 09:11; Admin Dose 3.125 MG; Start 05/16/16 at 21:00 Atorvastatin Calcium (Lipitor) 10 mg HS PO Last administered on 05/20/16 21:10 ; Admin Dose 10 MG; Start 05/16/16 at 21:00 Potassium Chloride (Klor-Con 10) 10 meq DAILY PO Last administered on 09:10; Admin Dose 10 MEQ; Start 05/18/16 at 09:00 Quetiapine Fumarate (Seroquel) 25 mg BID PO Last administered on 05/21/16 09: 10; Admin Dose 25 MG; Start 05/20/16 at 21:00 LUIS GOODWIN MD May 21, 2016 15:32
--- NOTE | 2016-05-21 16:44 | CONS ---
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 Would increase dose of beta -mika. Continue IV diuretics, supplement potassium to maintain above 4.0. Given patient undergoing CVA workup and awaiting further imaging, would hold off on initiation of anticoagulation at the current time. Consultation Date/Type/Reason Admit Date/Time May 15, 2016 at 15:12 Type of Consultation: cv 24 HR Interval Summary Free Text/Dictation Patient seen and examined, no cardiac issues as per nursing staff Exam/Review of Systems Vital Signs Vitals Vital Signs Date Time Temp Pulse Resp B/P Pulse Ox O2 Delivery O2 Flow Rate FiO2 05/21/16 16:40 97.7 87 22 143/77 98 05/21/16 08:10 Nasal Cannula 2.0 Intake and Output 05/20/16 05/20/16 05/21/16 15:00 23:00 07:00 Intake Total 50 ml 400 ml 400 ml Output Total 550 ml Balance 50 ml -150 ml 400 ml Exam Sleeping, no apparent distress, arousable Head: normocephalic Neck: supple Respiratory: other (Coarse breath sounds bilaterally with mild scattered crackles, no wheezing) Cardiovascular: other (S1-S2 heard), regular rate and rhythm Gastrointestinal: bowel sounds, non-tender, other (No grimacing with palpation) , soft Extremities: edema (Trace), other (No cyanosis) Results Result Diagram: 05/21/16 0700 05/21/16 0700 Results 24 hrs Laboratory Tests Test 05/21/16 07:00 Alanine Aminotransferase (ALT/SGPT) 60 Albumin 3.2 L Albumin/Globulin Ratio 0.78 Alkaline Phosphatase 92 Anion Gap 18 H Aspartate Amino Transf (AST/SGOT) 37 Basophils # 0.0 Basophils % 0.2 Blood Urea Nitrogen 16 Calcium Level 9.6 Carbon Dioxide Level 22 Chloride Level 107 Creatinine 0.63 Direct Bilirubin 0.00 Eosinophils # 0.0 Eosinophils % 0.2 Globulin 4.10 H Glucose Level 207 Hematocrit 42.5 Hemoglobin 14.2 Indirect Bilirubin 0.3 Lymphocytes # 2.8 Lymphocytes % 16.7 Magnesium Level 2.2 Mean Corpuscular Hemoglobin 28.5 L Mean Corpuscular Hemoglobin Concent 33.4 Mean Corpuscular Volume 85.3 Mean Platelet Volume 10.0 Monocytes # 0.7 Monocytes % 4.1 Neutrophils # 12.7 H Neutrophils % 77.3 H Nucleated Red Blood Cells # 0.0 Nucleated Red Blood Cells % 0.0 Phosphorus Level 2.9 Platelet Count 469 #H Potassium Level 3.4 L Red Blood Count 4.98 Red Cell Distribution Width 14.2 Sodium Level 144 Total Bilirubin 0.3 Total Protein 7.3 White Blood Count 16.5 H Medications Medications Current Medications Ondansetron HCl (Zofran Tab) 4 mg Q6H PRN PO NAUSEA AND/OR VOMITING; Start at 17:00 Acetaminophen (Tylenol Tab) 650 mg Q6H PRN PO PAIN LEVEL 1-3 OR FEVER Last administered on 05/17/16 08:44; Admin Dose 650 MG; Start 05/15/16 at 17:00 Docusate Sodium (Colace) 100 mg Q12H PRN PO CONSTIPATION; Start 05/15/16 at 17: 00 Bisacodyl (Dulcolax) 5 mg DAILY PRN PO CONSTIPATION; Start 05/15/16 at 17:00 Pantoprazole (Protonix Tab) 40 mg DAILY@06 PO Last administered on 05/21/16 05 :12; Admin Dose 40 MG; Start 05/16/16 at 06:00 Enoxaparin Sodium 40 mg 40 mg DAILY SC Last administered on 05/21/16 09:12; Admin Dose 40 MG; Start 05/16/16 at 09:00 Ceftriaxone Sodium (Rocephin) 50 ml @ 100 mls/hr Q24H IVPB Last administered on 05/21/16 14:40; Admin Dose 100 MLS/HR; Start 05/16/16 at 14:00 Azithromycin (Zithromax) 250 mg DAILY PO Last administered on 05/21/16 09:10; Admin Dose 250 MG; Start 05/16/16 at 09:00 Aspirin (Aspirin) 81 mg DAILY PO Last administered on 05/21/16 09:10; Admin Dose 81 MG; Start 05/15/16 at 18:30 Hydralazine HCl (Apresoline) 10 mg Q6H PRN IV ELEVATED SYSTOLIC BP; Start 05/16 at 03:00 Lisinopril (Zestril) 5 mg DAILY PO Last administered on 05/21/16 09:11; Admin Dose 5 MG; Start 05/17/16 at 09:00 Carvedilol (Coreg) 3.125 mg BID PO Last administered on 05/21/16 09:11; Admin Dose 3.125 MG; Start 05/16/16 at 21:00 Atorvastatin Calcium (Lipitor) 10 mg HS PO Last administered on 05/20/16 21:10 ; Admin Dose 10 MG; Start 05/16/16 at 21:00 Potassium Chloride (Klor-Con 10) 10 meq DAILY PO Last administered on 09:10; Admin Dose 10 MEQ; Start 05/18/16 at 09:00 Quetiapine Fumarate (Seroquel) 25 mg BID PO Last administered on 05/21/16 09: 10; Admin Dose 25 MG; Start 05/20/16 at 21:00 Shelton Beal DO May 21, 2016 16:44
[2016-05-21] MEDS ORDERED: POTASSIUM CHLORIDE 20 MEQ POWDER FOR ORAL SOLN PO ONE (17:00)
[2016-05-21] MEDS: ATORVASTATIN 10 MG TAB PO SCH (21:57)
[2016-05-22] VITALS (11 sets, daily range): BP systolic 97–150; BP diastolic 61–89; PULSE 72–86; RESP 20–22
[2016-05-22] MEDS: FUROSEMIDE 20 MG INJ IV SCH (06:02)
[2016-05-22] MEDS: PANTOPRAZOLE (EC) 40 MG TAB PO SCH (06:02)
[2016-05-22 08:29] LABS: ADD SCAN DIFF NO
[2016-05-22 08:35] LABS: BASOPHIL # 0.1 10^3/ul (0.0-0.1); BASOPHILS % 0.4 % (0.0-2.0); EOSINOPHILS # 1.1 10^3/ul (0.0-0.5); EOSINOPHILS % 6.7 % (0.0-7.0); HEMOGLOBIN 15.4 g/dl (14.0-18.0); LYMPHOCYTES # 3.2 10^3/ul (0.8-2.9); LYMPHOCYTES % 19.7 % (15.0-51.0); MEAN CORPUSCULAR HEMOGLOBIN 27.9 pg (29.0-33.0); MEAN CORPUSCULAR HGB CONC 32.1 g/dl (32.0-37.0); MEAN CORPUSCULAR VOLUME 87.1 fl (82.0-101.0); MEAN PLATELET VOLUME 10.2 fl (7.4-10.4); MONOCYTE # 0.8 10^3/ul (0.3-0.9); MONOCYTES % 5.1 % (0.0-11.0); NEUTROPHILS % 67.1 % (39.0-77.0); PLATELET COUNT 497 10^3/UL (140-415); RED BLOOD COUNT 5.51 10^6/ul (4.70-6.10); RED CELL DISTRIBUTION WIDTH 14.8 % (11.5-14.5); WHITE BLOOD COUNT 16.4 10^3/ul (4.8-10.8)
[2016-05-22 08:50] LABS: POTASSIUM 3.7 mmol/L (3.5-5.1)
[2016-05-22 08:53] LABS: CREATININE 0.76 mg/dl (0.61-1.24)
[2016-05-22 08:54] LABS: CALCIUM 10.2 mg/dl (8.4-10.2)
[2016-05-22] MEDS: POTASSIUM CHLORIDE (SR) 10 MEQ TAB PO SCH (09:41)
[2016-05-22] MEDS: AZITHROMYCIN 250 MG TAB PO SCH (09:42)
[2016-05-22] MEDS: LISINOPRIL 5 MG TAB PO SCH (09:42)
[2016-05-22] MEDS: QUETIAPINE 25 MG TAB PO SCH (09:42)
[2016-05-22] MEDS: ASPIRIN 81 MG TAB PO SCH (09:42)
[2016-05-22] MEDS: ENOXAPARIN 40 MG/0.4 ML SYG SC SCH (09:46)
[2016-05-22] MEDS: CEFTRIAXONE 1 GM/50 ML (PMX) 50 ML IVPB SCH (14:31)
--- NOTE | 2016-05-22 18:22 | DS ---
DATE OF ADMISSION: 05/15/2016 DATE OF DISCHARGE: 05/22/2016 FACULTY RESEARCH PHYSICIAN: 1. Dr. Shelton Beal 2. ____ 2. Dr. Keyon Douglass. PROCEDURE: A 2-D echocardiogram which demonstrated ejection fraction of 30%, mild concentric left v entricular hypertrophy, mild left ventricular cavity size, moderate to severe left ventricle systoli c dysfunction, abnormal diastolic dysfunction. DISCHARGE DIAGNOSES: 1. Cerebrovascular accident. Neurology was consulted. Continue aspirin, statin and blood pressure treatment. 2. Pneumonia, status post IV antibiotics, resolved. 3. History of coronary artery disease with history of noncompliance with medical management on aspi rin, statin and Coreg. 4. History of hypertension, better controlled on medical management. 5. History of dyslipidemia, on statin. 6. Generalized weakness, secondary to #1. 7. Congestive heart failure on beta mika and lisinopril. 8. Altered mental status, likely secondary to sundowning and hospital acquired dementia, accompanie d with cerebrovascular accident, transition to shelter facility. Please see my discharge summary which was done on 05/17/2016. MEDICATIONS: 1. Aspirin 81 mg 2. Lipitor 10 mg. 3. Coreg 3.125 mg. 4. Lasix 20 mg. 5. Lisinopril 5 mg 6. Zofran 4 mg. 7. Protonix 40 mg. 8. Potassium chloride 10 mEq. 9. Seroquel 25 mg. ALLERGIES: NO KNOWN DRUG ALLERGIES. HOSPITAL COURSE: Please see my discharge summary which was done on 05/17/2016. This is an 80-year-old gentleman with past medical history of coronary artery disease, hypertension , diabetes mellitus, coronary artery bypass surgery, myocardial infarction, history of CVA, noncomp liance with medication, who was sent to [facility], stating having body aches x2 w [place], cough and congestion. The patient was found to be altered, had right lower extremity weakness, chest x-ray was obtained, which showed positive cardiomegaly and CHF, bilateral pleural effusion. Patient was started on broad spectrum IV antibiotics. CT brain was obtained which showed subtotal l oss of rousseau white matter differentiation to the left parietal occipital lobe, concerning for acute i nfarct. Neurology was consulted. Patient was started on aspirin and statin. The patient's blood p ressure upon admission was found to be uncontrolled. He was restarted on beta mika and REX inhib itor. Cardiology was consulted. His ejection fraction was found to be 30% on 2D echocardiogram wit h mild ____ left ventricular cavity, moderate to severe left ventricle systolic dysfunction, abnorma l diastolic dysfunction. The patient had episodes of agitation and aggressiveness on the 3rd day of his hospitalization. This is likely secondary to hospital acquired dementia and delirium. He was started on Ativan, which did not improve his mentation. Ativan was discontinued and he was started on Seroquel, on which he started to improve significantly. Today, his laboratories: WBC was 16.5, hemoglobin 15.4, hematocrit 48, platelets 497. Sodium 146, potassium 3.7, chloride 107, bicarbonate 24, BUN 21, creatinine 0.76, glucose 183, calcium 10.2, magnesium 2.4. Patient has minimal p.o. in take. This is likely secondary to his dementia and delirium, although when he was seen and evaluate d by speech therapy, was able to tolerate soft diet, nectar thick. CONDITION AT TIME OF DISCHARGE: Stable. Dictated By: LUIS ORLANDO/SAE Conf#: [id number] DID#: [id number]
== END 2016-05-22 15:30 | DRG 64 ==
LOC: E/R 13:30 → MS2 15:12 → MS4 15:12
PROVIDERS: ADMIT Family Medicine; ATTEND Family Medicine
DX: I63.9 Cerebral infarction, unspecified (principal); J18.9 Pneumonia, unspecified organism; I50.23 Acute on chronic systolic (congestive) heart failure; I42.9 Cardiomyopathy, unspecified; R65.10 Systemic inflammatory response syndrome (SIRS) of non-infectious origin without acute organ dysfunction; G81.91 Hemiplegia, unspecified affecting right dominant side; F05 Delirium due to known physiological condition; F03.90 Unspecified dementia, unspecified severity, without behavioral disturbance, psychotic disturbance, mood disturbance, and anxiety; I48.0 Paroxysmal atrial fibrillation; R47.01 Aphasia; E11.9 Type 2 diabetes mellitus without complications; I25.10 Atherosclerotic heart disease of native coronary artery without angina pectoris; I10 Essential (primary) hypertension; E78.5 Hyperlipidemia, unspecified; Z91.14 Patient's other noncompliance with medication regimen; I25.2 Old myocardial infarction; Z95.1 Presence of aortocoronary bypass graft; Z79.4 Long term (current) use of insulin; Z79.82 Long term (current) use of aspirin
CPT/HCPCS: 36415; 70450; 71010; 80048; 80053; 80061; 82550; 82553; 82962; 83036; 83605; 83735; 83880; 84100; 84443; 84484; 85025; 87040; 87400; 92610; 93306; 93880; 96374; 97110; 97163; 97166; 97530; J1940; J0696; J1650; J2060; J2930; J7030; J7040

== ENCOUNTER 2016-05-29 14:49 | Emergency (ER) | payer OTHER ==
[~2016-05-29 14:49] MED LIST changes: +ASPI81TA3 PO; +ATOR10TA65 PO; +CARV3.1260 PO; -IBUP-1542 PO; +LAS20 PO; +LISI-313 PO; +ONDA4TAB95 PO; +PANT40TA4 PO; +POTA10TA15 PO; -TRAM50TA2 PO
--- NOTE | 2016-05-29 16:35 | ERA ---
ER Documentation Chief Complaint Date/Time DATE: 05/29/16 TIME: 16:25 Chief Complaint HPI 80-year-old man brought in by EMS from skilled nursing for initial complaints of difficulty breathing and bradycardia. Upon EMS arrival nurses were performing CPR and stated that he had weak pulses. EMS felt that he had no pulse, he was apneic, and rhythm strip was initially ventricular fibrillation. Advanced cardiac life support was started at the scene, he was given multiple doses of epinephrine 1 mg intravenously with no return of spontaneous circulation. EMS state his rhythm did vary between bradycardic PDA, ventricular fibrillation, and asystole. Patient was transported here unresponsive. He has a recent history of pneumonia treated with antibiotics, congestive heart failure, hypertension, cerebral infarction, diabetes mellitus, GERD, hyperlipidemia. HPI was supplemented by reviewing past medical and skilled nursing records, speaking to EMS, and nursing staff. ROS All systems reviewed and are negative except as per history of present illness. Medications Home Meds Active Scripts Ondansetron Hcl* (Ondansetron Hcl*) 4 Mg Tablet, 4 MG PO Q6H Y for NAUSEA AND/ OR VOMITING for 1 Day, TAB Prov:LUIS GOODWIN MD 05/17/16 Pantoprazole* (Pantoprazole*) 40 Mg Tablet.dr, 40 MG PO DAILY@06, #1 Prov:LUIS GOODWIN MD 05/17/16 Potassium Chloride (Klor-Con M10) 10 Meq Tab.prt.sr, 10 MEQ PO DAILY for 1 Day Prov:LUIS GOODWIN MD 05/17/16 Lisinopril* (Lisinopril*) 5 Mg Tablet, 5 MG PO DAILY for 1 Day, TAB Prov:LUIS GOODWIN MD 05/17/16 Furosemide (Lasix) 20 Mg Tab, 20 MG PO DAILY for 1 Day, TAB Prov:LUIS GOODWIN MD 05/17/16 Carvedilol* (Carvedilol*) 3.125 Mg Tablet, 3.125 MG PO BID for 1 Day, TAB Prov:LUIS GOODWIN MD 05/17/16 Atorvastatin (Atorvastatin) 10 Mg Tablet, 10 MG PO HS for 1 Day, TAB Prov:LUIS GOODWIN MD 05/17/16 Aspirin (Aspirin) 81 Mg Chew, 81 MG PO DAILY for 1 Day, TAB Prov:LUIS GOODWIN MD 05/17/16 Allergies Allergies: Coded Allergies: No Known Allergies (Verified Allergy, Mild, 09/03/14) PMhx/Soc Hypertension, cerebral infarction, coronary artery disease, congestive heart failure, gastritis, obesity Anesthesia Reaction: No Hx Neurological Disorder: No Hx Respiratory Disorders: No Hx Cardiac Disorders: Yes (HTN, IL) Hx Psychiatric Problems: No Hx Miscellaneous Medical Probl: Yes (CAD, HTN, DM, CABG, IL, transient hyponatremia, CHF) Hx Alcohol Use: No Hx Substance Use: No Hx Tobacco Use: No FmHx Family History: No diabetes Physical Exam Vitals See nurse's notes which I have reviewed Physical Exam GENERAL: Elderly, chronically debilitated man, appears dehydrated, unresponsive HEENT: Dry mucous membranes, pale conjunctival, no cervical spine deformity, pupils fixed dilated NEURO: Unresponsive, no facial asymmetry, pupils fixed dilated, no corneal reflex CARDIAC: No heart sounds auscultated, no pulses palpated LUNGS: Lungs clear no wheezing crackles or stridor ABDOMEN: Soft nontender, no guarding, no rigidity, no rebound, no psoas sign no obturator sign. Normoactive bowel sounds SKIN: Cool and dry to touch, no obvious lacerations or ulcers EXTREMITIES: No clubbing cyanosis or edema, calves are bilaterally symmetrical, no Homans sign, no popliteal cord sign. Distal pulses equal and bilateral PSYCH: Unable to assess Procedures/MDM IV lines were established and patient was placed on patient monitor and initially had a pulseless electrical activity. Blood sugar was normal. Endotracheal Intubation by me: Pre assessment performed. Patient unresponsive Pre-oxygenation performed with 100% oxygen RSI: Performed w/o complication or hypoxic events. Medications as ordered. Blade: Mac 4 ET Tube: 7.5 cm Depth: 22 cm at the lip Intubation confirmed by colorimetric CO2, equal breath sounds, quiet over the stomach. Advanced cardiac life support with high-quality chest compressions were continued in the emergency department patient's overriding rhythm was fine ventricular fibrillation and he was defibrillated multiple times, patient also received multiple doses of intravenous epinephrine at 1 mg. Patient also received calcium, sodium bicarbonate, and amiodarone per ACLS guidelines and based on my clinical decision making. Please refer to resuscitation log for full list of medications, dosages, and times. Critical Care: Time: 34 minutes, this was time separate from other procedures. Treatments/Evaluations: Close monitoring and treatment of unstable vital signs, cardiorespiratory, and neurologic status, while maintaining tight balance of fluid, respiratory, and cardiac interventions. Advanced cardiac life support and resuscitation ran for over 30 minutes, despite my measures and high-quality chest compression he did not regain a pulse. Final rhythm was asystole. Patient was pronounced by me at 15:11 on May 29, 2016. Departure Diagnosis: Primary Impression: Cardiac arrest Condition: Critical BJORN ASTUDILLO MD May 29, 2016 16:35
[2016-05-29] MEDS ORDERED: EPINEPHrine 0.1 MG/ML SYG ONE (21:00)
[2016-05-29] MEDS ORDERED: AMIODARONE 150 MG INJ ONE (21:00)
[2016-05-29] MEDS ORDERED: MAGNESIUM SULFATE 1 GM/100 ML D5W IVPB ONE (21:00)
[2016-05-29] MEDS ORDERED: NA BICARBONATE 8.4% 50 ML SYG ONE (21:00)
== END 2016-05-29 16:09 | disposition expired ==
LOC: E/R 14:49
DX: I46.9 Cardiac arrest, cause unspecified (principal); I10 Essential (primary) hypertension; I25.10 Atherosclerotic heart disease of native coronary artery without angina pectoris; E66.9 Obesity, unspecified; E11.9 Type 2 diabetes mellitus without complications; Z79.82 Long term (current) use of aspirin; Z95.1 Presence of aortocoronary bypass graft
CPT/HCPCS: 31500; 92950; J0171; J0282; J3475